=== PATIENT | male | born 1950 | race African-American/Black ===

== ENCOUNTER 2018-10-06 13:58 | Observation (INO) | payer MEDICARE, MEDICAID ==
[2018-10-06 16:26] LABS: Troponin I 0.209 ng/mL (< 0.028)
[2018-10-06] MEDS ORDERED: HumaLOG 300 UNITS/3 ML VIAL SC PRN (16:32)
[2018-10-06] MEDS ORDERED: Senokot S 8.6-50 MG TAB PO PRN (16:32)
[2018-10-06] MEDS ORDERED: Acetaminophen 325 MG TAB PO PRN (16:32)
[2018-10-06] MEDS ORDERED: Ondansetron PF 4 MG/2 ML Vial IVP PRN (16:32)
[2018-10-06] MEDS ORDERED: Dextrose 5% in Water 1,000 ML IV PRN (16:32)
[2018-10-06] MEDS ORDERED: Dextrose 50% Abboject 50 ML SYRINGE SLOW IVP PRN (16:32)
[2018-10-06] MEDS ORDERED: Ondansetron ODT 4 MG TAB PO PRN (16:32)
[2018-10-06 17:10] VITALS: BMI 28.7
--- NOTE | 2018-10-06 17:43 | HP ---
PRIMARY CARE PHYSICIAN: Dr. Parker Candelario. CHIEF COMPLAINT: Acute dizziness and lightheadedness. HISTORY OF PRESENT ILLNESS: The patient is a 68-year-old male with known history of coronary artery disease status post CABG; atrial fibrillation on chronic anticoagulation with Coumadin, cardiomyopathy status post AICD placement, who was transferred from [facility] for further evaluation of acute onset of dizziness/syncope. The patient reportedly developed lightheadedness and dizziness while seated earlier this morning. He reported that he may have passed out while seated as he noticed that his cup of coffee was spilled when he came to. On getting up, he felt dizzy but was still able to check his blood glucose which was above 300, hence he presented to the ER. The patient was evaluated at [facility] with EKG which showed no acute ischemic changes but troponin was noted to be mildly elevated, hence was transferred over here for further evaluation and treatment. He reported having episode of palpitation and chest discomfort last night and earlier this morning for which he took sublingual nitroglycerin about 45 minutes before the episode of syncope. He also reported having loose stools earlier this morning about two or three episodes prior to event. He also reported dysuria since about two weeks, but denied hematuria. He has chronic COPD as well as bronchitis, but denied worsening shortness of breath, fever, nausea, vomiting, or focal weakness. PAST MEDICAL HISTORY: 1. Coronary artery disease status post CABG. 2. Chronic atrial fibrillation. 3. Hypertension. 4. Gouty arthropathy. 5. Hyperlipidemia. 6. Ischemic cardiomyopathy, status post AICD placement. 7. Type 2 diabetes. PAST SURGICAL HISTORY: Significant for the following; 1. Pacemaker placement. 2. CABG. 3. Cholecystectomy. 4. Hernia repair. FAMILY HISTORY: This is significant for diabetes and heart disease in parents and siblings. Both parents are . SOCIAL HISTORY: The patient lives with family. He is a former smoker and stopped about 25 years ago. He denied alcohol and recreational drug use. ALLERGIES: PENICILLIN. HOME MEDICATIONS: The patient is unsure of his medications and does not have a list; however, he reported being on the following; 1. Albuterol inhaler. 2. Amiodarone. 3. Aspirin. 4. Furosemide. 5. Levemir. 6. Pravastatin. 7. Coumadin. 8. Allopurinol. REVIEW OF SYSTEMS: Twelve-point review of systems performed was negative other than pertinent positives and negatives included in the history of present illness. PHYSICAL EXAMINATION: VITAL SIGNS: Orthostatic vitals showed BP of 105/65 on lying down, 106/57 on sitting and 109/60 on standing. GENERAL: Elderly male, in no obvious distress. Afebrile. Anicteric. Acyanotic. HEENT: Normocephalic, atraumatic. Pupils are equal and reacting to light. Oral mucosa is moist. NECK: Supple, nontender with full range of motion. No obvious JVD appreciated. No masses or thyromegaly appreciated. CARDIOVASCULAR: Irregular rhythm and rate with normal heart sounds 1 and 2. RESPIRATORY: Fair air entry bilaterally with some transmitted sounds. No obvious rhonchi or crackles was appreciated. GI: Abdomen is full, soft, nontender, nondistended with normal bowel sounds. EXTREMITIES: Mild bilateral leg edema noted. Otherwise atraumatic with no erythema. Distal pulses are palpable. NEUROLOGIC: Conscious, alert, and oriented x3 with appropriate mental status. Cranial nerves 2 through 12 are intact. The patient moves all extremities. DIAGNOSTIC DATA: CBC showed WBC count of 9.3, hemoglobin of 11.2, MCV of 96.7, and platelet of 170. Coagulation panel showed PT 20.7, INR 1.8. CMP showed sodium 135, potassium 3.5, chloride 95, CO2 of 26, BUN 84, creatinine 2.71, glucose 325, calcium 9.9, total bilirubin 1.1, AST 41, ALT 16, alkaline phosphatase 159, total protein 7.4, albumin 4.1, globulin 3.3. Cardiac markers show initial troponin of 0.156, CK-MB of 1.3, CK of 65. Repeat troponin 3 hours later was 0.209. Initial EKG performed at [facility] showed irregular rhythm and rate, most likely variable demand pacing with rate of 85. No obvious ischemic changes could be discerned. Repeat EKG performed here showed paced rhythm with rate of 73. Chest x-ray showed bilateral interstitial prominence with cardiomegaly as well as sternotomy wires and dual-lead left-sided AICD. No obvious acute pathology was discerned. ASSESSMENT: 1. Presumed syncopal episode. Etiology is unclear. This may well be arrhythmogenic. The patient reported intermittent episodes of palpitations associated with chest tightness. He has been taking nitroglycerin sublingually with some improvement. Orthostatic hypotension is unlikely. Orthostatic vitals performed here were unremarkable. Also, the patient was seated when he had the episode. Interrogation of the AICD, however, showed some irregular atrial pacing as well as burst of atrial fibrillation. 2. Intermittent chest tightness: Most likely related to palpitations and tachyarrhythmia. Initial troponin, however, was mildly elevated, but review of medical records showed that the patient has chronic elevation of troponin dating back to 2014. He however is at increased risk of sudden cardiac as well as coronary artery disease. 3. Type 2 diabetes mellitus with hyperglycemia. 4. Hypertension, controlled. 5. Ischemic cardiomyopathy with EF of 25% to 30% on available echocardiogram. The patient is status post AICD. 6. Chronic systolic and diastolic heart failure. Cannot rule out acute decompensation. Chest x-ray showed some infiltrates and the patient reported having chest congestion. 7. Chronic paroxysmal atrial fibrillation. 8. Chronic anticoagulation with Coumadin. 9. Chronic kidney disease, stage 4. PLAN: 1. We will admit the patient for close monitoring. We will consult Cardiology for re-evaluation of patient's CHF and arrhythmia management. 2. We will continue anticoagulation with Coumadin. 3. We will start insulin therapy and adjust dose to get adequate glycemic control. 4. We will restart home medications once these can be verified. 5. DVT prophylaxis has been addressed. The patient is on chronic anticoagulation with Coumadin. 6. Code status: The patient is do not resuscitate. Daughter is the surrogate decision maker. Job ID: [id number] MTDD
[2018-10-06] MEDS ORDERED: Non-Formulary Item 1 EACH (Insulin Detemir 100 Units/Ml [Levemir] 20 UNITS) SQ SCH (18:00)
[2018-10-06] MEDS ORDERED: Warfarin Sodium 2.5 MG TAB PO SCH (20:30)
[2018-10-06] MEDS ORDERED: Pravastatin Sodium 40 MG TAB PO SCH (21:00)
[2018-10-06] MEDS: Insulin Glargine 20 UNITS in Pre-Filled Syringe SC SCH (21:02)
[2018-10-06 21:18] LABS: Bilirubin Negative (Negative); Blood, Urine Negative (Negative); Clarity CLEAR (Clear); Glucose, Urine (Dipstick) Negative (Negative); Leukocyte Negative (Negative); Nitrite Negative (Negative); Protein, Urine (Dipstick) Negative (Neg-Trace); Urobilinogen 0.2 mg/dL (0.2-1.0); pH, Urine 5.5 (5.0-9.0)
[2018-10-06 21:20] LABS: Bacteria/HPF None Seen HPF (None Seen); Hyaline Casts/LPF 0-3 HYALINE CAST LPF (0-3 Hyaline); Pathc Cast-AUWi Flag 0.13 (0-2.49); RBC/HPF 0-3 HPF (0-3); Squamous Epithelial None Seen HPF (0-3); WBC/HPF None Seen HPF (0-3)
[2018-10-06 21:23] LABS: Urine Culture Reflex No No
[2018-10-07 05:58] LABS: INR-International Normal Ratio 1.5; Prothrombin Time 17.9 SEC (12.0-14.7)
[2018-10-07 06:07] LABS: Albumin 3.8 g/dL (3.4-4.8); Anion Gap 12 mmol/L (10-20); BUN (Urea Nitrogen) 76 mg/dL (8.4-25.7); BUN/Creatinine Ratio 33.19; Calc. Creatinine Clearance 37 mL/min (70-130); Calcium 9.8 mg/dL (7.8-10.44); Carbon Dioxide 30 mmol/L (23-31); Chloride 97 mmol/L (98-107); Estimated GFR-MDRD 35; Glucose 136 mg/dL (80-115); Phosphorus 3.5 mg/dL (2.3-4.7); Potassium 3.1 mmol/L (3.5-5.1); Sodium 136 mmol/L (136-145)
[2018-10-07] MEDS ORDERED: Allopurinol 100 MG TAB PO SCH (09:00)
[2018-10-07] MEDS ORDERED: Aspirin 81 mg Enteric Coated Tablet PO SCH (09:00)
--- NOTE | 2018-10-07 11:37 | ULT ---
EXAM: Carotid ultrasound HISTORY: Syncope COMPARISON: 12/01/2014 TECHNIQUE: Multiplanar grayscale and color Doppler images were obtained in a carotid ultrasound. Spec tral analysis of the Doppler waveforms were performed. FINDINGS: No significant plaque is visualized in either internal carotid artery. No significant plaque is seen in either common carotid artery. The Doppler waveforms are normal in the visualized vessels. Peak systolic velocity in the right internal carotid artery 40 cm/s. Peak systolic velocity in the right common carotid artery 85 cm/s. The right ICA/CCA ratio is 0.5. Peak systolic velocity in the left internal carotid artery 55 cm/s. Peak systolic velocity in the left common carotid artery 96 cm/s. The left ICA/CCA ratio is 0.6. Both vertebral arteries demonstrate antegrade flow without focal stenosis IMPRESSION: No evidence of hemodynamically significant stenosis.
--- NOTE | 2018-10-07 15:19 | CON ---
DATE OF CONSULTATION: REASON FOR CONSULTATION: Dizziness, lightheadedness. HISTORY OF PRESENT ILLNESS: Mr. Dye is a pleasant 68-year-old gentleman, who I have seen and evaluated in the past. He has a history of CAD, status post bypass surgery in addition to severe multivessel disease. The patient was last seen in 2014 after angiography. At that point, medical therapy. He states he has been followed by Dr. Dave Medina in the past, but no longer sees Dr. Medina because of a pending balance. His ICD has also not been followed recently. He has been off anticoagulation therapy due to history of bleeding after cutting himself with a knife. His ICD did suggest atrial fibrillation with rapid ventricular response. No dysrhythmia is present. PAST MEDICAL HISTORY: CAD, status post bypass surgery, chronic atrial fibrillation, hypertension, hyperlipidemia, ICD placement, and diabetes mellitus. HOME MEDICATIONS: 1. Amiodarone. 2. Aspirin. 3. Albuterol. 4. Lasix. 5. Levemir. 6. Pravastatin. 7. Allopurinol. REVIEW OF SYSTEMS: A 10-point review of systems is reviewed and as above, otherwise negative. PHYSICAL EXAMINATION: GENERAL: Patient is a pleasant male, who is in no acute distress. The patient appears their stated age. VITAL SIGNS: Blood pressure 122/60, pulse 76, and temperature 98.4. NEUROLOGIC: The patient is alert and oriented x3 with no focal neurologic deficits. HEENT: Sclerae without icterus. Mouth has moist mucous membranes with normal pallor. NECK: No JVD. Carotid upstroke brisk. No bruits bilaterally. LUNGS: Clear to auscultation with unlabored respirations. BACK: No scoliosis or kyphosis. CARDIAC: Regular rate and rhythm with normal S1 and S2. No S3 or S4 noted. No significant rubs, murmurs, thrills, or gallops noted throughout the precordium. PMI is not displaced. There is no parasternal heave. ABDOMEN: Soft, nontender, nondistended. No peritoneal signs present. No hepatosplenomegaly. No abnormal striae. EXTREMITIES: 2+ femoral and 2+ dorsalis pedis pulses. No cyanosis, clubbing, or edema. SKIN: No gross abnormalities. PERTINENT LABORATORY DATA: INR 1.5. Creatinine 2.29. IMPRESSION: 1. Dizziness, lightheadedness. 2. Atrial fibrillation with rapid ventricular response. 3. Coronary artery disease. 4. Status post bypass surgery. RECOMMENDATIONS: Mr. Dye does not have any symptoms suggesting angina. His troponin is mildly elevated and felt to be chronic. His creatinine is also elevated. At this point, recommend medical therapy. I discussed anticoagulation therapy with Mr. Dye as well as the risks of stroke if not on Coumadin. The family has opted to proceed with Coumadin therapy. I would recommend [facility] Clinic followup as well as EP followup for ICD. Continue amiodarone therapy. Otherwise, I have no further recommendations. Job ID: [id number]
[2018-10-07 15:59] VITALS: BP 113/73; TEMP 98.3
[2018-10-07] MEDS: Insulin Glargine 20 UNITS in Pre-Filled Syringe SC SCH (16:29)
--- NOTE | 2018-10-07 16:47 | DIS ---
DATE OF ADMISSION: 10/06/2018 DATE OF DISCHARGE: 10/07/2018 DISPOSITION: Discharged home. PRIMARY CARE PROVIDER: Parker Candelario DO FINAL DIAGNOSES: Syncope; type 2 diabetes; ischemic cardiomyopathy; coronary artery disease; atrial fibrillation, anticoagulation. DISCHARGE MEDICATIONS: The patient's medicines were never confirmed during his hospital stay. Most recent information is; 1. Albuterol ProAir HFA 2 puffs q.4 hours p.r.n. 2. Allopurinol 200 mg a day. 3. Amiodarone 200 mg a day. 4. Aspirin 81 mg a day. 5. Plavix 75 mg a day. 6. Pepcid 20 mg a day. 7. Lasix 80 mg a day. 8. Detemir insulin 20 units at 6 p.m. 9. Zestril 5 mg a day. 10. Potassium chloride 20 mEq a day. 11. Pravastatin 80 mg a day. 12. Eliquis 5 mg twice a day. 13. Glipizide 10 mg twice a day. 14. Hydralazine 50 mg 3 times a day. 15. Tramadol. ALLERGIES: TO PENICILLIN. DIET: Diabetic. CODE STATUS: DNR. PENDING AT TIME OF DISCHARGE: We have really trying to get family to get medicines. HOSPITAL COURSE: The patient was admitted through the emergency room with acute dizziness and lightheadedness. His blood sugar was elevated. CBC; 9.3 white count, 11.2 g of hemoglobin, 170 platelet count. INR was 1.8. Chemistries; sodium 135 , potassium 3.5, BUN 84, creatinine 2.71. Blood sugar was in the 300 range. Troponins 0.156, 0.209, 0.210. EKG showed paced rhythm at 73. The patient was seen in consultation by Dr. Qasim Zhu. He felt his troponins were chronic. No suggestion of angina. I spoke briefly with Dr. Zhu, who recommended followup with EP with [facility] and possibly electrophysiology. The patient feels fine now. He is being discharged to follow up with Dr. Candelario. Dr Zhu suggested referral to Dr Soto, VLADISLAV, as outpatient. CONSULTATIONS: Dr. Qasim Zhu. PROCEDURES: None. CONDITION AT DISCHARGE: The patient feels well. Cardiorespiratory exam normal. Vital signs normal. Job ID: [id number] [facility]
[2018-10-07] MEDS ORDERED: Warfarin Sodium 2.5 MG TAB PO SCH (17:00)
== END 2018-10-07 18:20 | disposition home or self-care (01) ==
LOC: ERS 13:58 → 2SW 15:45
PROVIDERS: ADMIT Internal Medicine Nephrology; ATTEND Internal Medicine Nephrology
DX: R42 Dizziness and giddiness (principal); R55 Syncope and collapse; I25.10 Atherosclerotic heart disease of native coronary artery without angina pectoris; I13.0 Hypertensive heart and chronic kidney disease with heart failure and stage 1 through stage 4 chronic kidney disease, or unspecified chronic kidney disease; E11.22 Type 2 diabetes mellitus with diabetic chronic kidney disease; E11.65 Type 2 diabetes mellitus with hyperglycemia; N18.4 Chronic kidney disease, stage 4 (severe); I50.42 Chronic combined systolic (congestive) and diastolic (congestive) heart failure; E78.5 Hyperlipidemia, unspecified; I25.5 Ischemic cardiomyopathy; J44.9 Chronic obstructive pulmonary disease, unspecified; I48.0 Paroxysmal atrial fibrillation; I48.2 Chronic atrial fibrillation; M10.9 Gout, unspecified; R07.89 Other chest pain; Z79.82 Long term (current) use of aspirin; Z79.899 Other long term (current) drug therapy; Z87.891 Personal history of nicotine dependence; Z95.0 Presence of cardiac pacemaker; Z95.1 Presence of aortocoronary bypass graft; Z66 Do not resuscitate
CPT/HCPCS: 80069; 81001; 82962 ×2; 84484; 85610; 93005; 93880; 99285; G0378 ×2; 36415; 36416; J1825

== ENCOUNTER 2018-11-18 21:03 | Observation (INO) | payer MEDICARE, MEDICAID ==
[2018-11-18 22:15] LABS: Troponin I 0.144 ng/mL (< 0.028)
[2018-11-18] MEDS ORDERED: Furosemide 40 MG/4 ML VIAL ONE (22:37)
[2018-11-19 00:12] VITALS: BMI 28.9
[2018-11-19 04:17] LABS: Troponin I 0.145 ng/mL (< 0.028)
[2018-11-19] MEDS ORDERED: PROVENTIL INHALER 6.7 G (200 INHALATIONS) INH PRN (07:25)
[2018-11-19] MEDS ORDERED: Dextrose 5% in Water 1,000 ML IV PRN (07:25)
[2018-11-19] MEDS ORDERED: Acetaminophen 325 MG TAB PO PRN (07:25)
[2018-11-19] MEDS ORDERED: Albuterol Sulfate 2.5 mg/3 ml Neb NEB PRN (07:25)
[2018-11-19] MEDS ORDERED: Ondansetron ODT 4 MG TAB PO PRN (07:25)
[2018-11-19] MEDS ORDERED: HumaLOG 300 UNITS/3 ML VIAL SC PRN (07:25)
[2018-11-19] MEDS ORDERED: Dextrose 50% Abboject 50 ML SYRINGE SLOW IVP PRN (07:25)
[2018-11-19] MEDS ORDERED: Metolazone 2.5 MG TAB PO SCH (07:30)
--- NOTE | 2018-11-19 08:01 | HP ---
PRIMARY CARE PROVIDER: Parker Candelario DO RADIOLOGIC TECHNOLOGIST MAMMOGRAM: Qasim Zhu MD HISTORY OF PRESENT ILLNESS: The patient was referred to [facility] by [place] [facility] after transfer from [place]. The patient was in [place], had 15 minutes of chest tightness. He was out of his nitroglycerin, actually states that been washed with his clothes. His studio receptionist here was called, Dr. Zhu. He and Dr. Candelario recommended going to the emergency room. He went to the emergency room in [place], found to have abnormal enzymes, transferred to [place] [facility] and admitted to the [facility]. He had no sweats, but a hot feeling with the pain. The chest tightness pain has been resolved since before he left [place]. He had no distinct change in shortness of breath. No nausea, vomiting, etc,. PAST MEDICAL HISTORY: Pertinent for coronary artery disease, post coronary artery bypass graft, history of atrial fibrillation, hypertension, gout, dyslipidemia, ischemic cardiomyopathy, post AICD placement, diabetes mellitus type 2. SURGICAL HISTORY: Includes pacemaker, AICD, coronary artery bypass graft, cholecystectomy, hernia repair. ALLERGIES: HE IS ALLERGIC TO PENICILLIN. SOCIAL HISTORY: Lives with family. Former smoker, stopped about 25 years ago. No alcohol. Code status is do not resuscitate. Daughter is surrogate decision maker. FAMILY HISTORY: Significant for diabetes, heart disease in parents and siblings. Both parents . CURRENT MEDICATIONS: 1. Allopurinol 600 mg twice a day. 2. Vitamin B12. 3. Albuterol nebulizer 2.5 mg q.6. 4. Levemir 22 units subcu at bedtime. 5. Aspirin 81 mg a day. 6. Losartan 25 mg a day. 7. Eliquis 10 mg a day. 8. Amiodarone 200 mg a day. 9. Zoloft 50 mg a day. 10. Zaroxolyn 2.5 mg p.r.n. 11. Namenda 5 mg a day. 12. Coreg 6.25 mg twice a day. 13. Lipitor 20 mg a day. 14. Glipizide 5 mg a day. 15. Albuterol ProAir HFA rescue inhaler. 16. K-Dur 20 mEq a day. 17. Lasix 80 mg a day. 18. Pepcid 20 mg a day. REVIEW OF SYSTEMS: GENERAL: He had a little dizziness with present illness. No fainting, a little headache. EYES: He has chronic blurred vision. No double vision, flashing lights. EAR, NOSE, AND THROAT: No ear pain or drainage. No nasal bleeding. No trouble swallowing. CARDIAC: See present illness. He has no orthopnea, paroxysmal nocturnal dyspnea. RESPIRATIONS: He has a little shortness of breath. Uses nebulizer on a regular basis. Has a dry cough. No recent wheezing. GASTROINTESTINAL: No nausea, vomiting, diarrhea, constipation. GENITOURINARY: He has nocturia. Stream is slow. MUSCULOSKELETAL: Occasional swelling in his legs. No pain in his legs. NEUROLOGICAL: No strokes, seizures, or focal weakness. PSYCHIATRIC: No anxiety or depression. SKIN: No bruising bleeding or rash. HEME/LYMPH: No tender or swollen lymph nodes in axilla, inguinal, cervical area. PHYSICAL EXAMINATION: GENERAL: Alert, cooperative, pleasant gentleman. VITAL SIGNS: Temperature 98.0 to 98.7, pulse 67 to 77, respirations 20, room air sat normal. Blood pressure in the 118/59 range. HEENT: Examination of his head, eyes, ears, nose, throat reveal bilateral cataracts. Pupils equal, round, and reactive to light. Extraocular movements are intact. Sclerae are white. Tympanic membranes clear. Nose is clear. He has multiple missing teeth. Mucous membranes are wet. NECK: Supple without jugular venous distention, adenopathy, or thyromegaly. CHEST: Clear to auscultation and percussion. HEART: Regular rate and rhythm. First and second second heart sounds are clear. There are no appreciated murmurs or gallops. ABDOMEN: Soft. Bowel sounds are normal. There is no hepatosplenomegaly, masses, rebound, or bruits. Bowel sounds are present. EXTREMITIES: No cyanosis, clubbing, or edema. PULSES: Carotid, radial, femoral, and dorsalis pedis pulses palpable and symmetric. SKIN: Warm and dry without bruises or rash. HEME/LYMPH: No tender or swollen lymph nodes in axilla, inguinal, cervical area. NEUROLOGICAL: Cranial nerves 2 through 12 are intact. Deep tendon reflexes symmetric. IMAGING STUDIES: Chest x-ray, cardiomegaly with no CHF or infiltrate reviewed by me. CARDIOVASCULAR STUDIES: EKG; sinus rhythm, prolonged CT interval. Nonspecific ST abnormality diffusely. Reviewed by me. LABORATORY RESULTS: CBC; hemoglobin 10.5, platelet count 161,000, white count 12.7. Cardiac enzymes; 0.124, 0.144, 0.140, 0.145. BNP 530. Comp metabolic profile; potassium 3.2, BUN 49, creatinine 2.45. ADMITTING DIAGNOSES: 1. Angina pectoris. 2. Coronary artery disease. 3. Cardiomyopathy. 4. Hypertension. 5. Diabetes mellitus type 2 with chronic kidney disease stage 3. 6. Chronic obstructive pulmonary disease. PLAN: Serial enzymes have been done. The patient's symptoms are consistent with chronic stable angina. His cardiac enzymes do not show any increasing patterns suspicious for acute NE. Dr. Zhu, his studio receptionist, will be called. I suspect the man can be discharged shortly on combination of Imdur and a prescription for nitroglycerin. Job ID: [id number]
[2018-11-19] MEDS ORDERED: Non-Formulary Item 1 EACH (Famotidine 20 MG) PO SCH (09:00)
[2018-11-19] MEDS ORDERED: Non-Formulary Item 1 EACH (Sertraline Hcl [Sertraline Hcl] 50 MG) PO SCH (09:00)
[2018-11-19] MEDS ORDERED: Non-Formulary Item 1 EACH (Cetirizine Hcl [Zyrtec] 10 MG) PO SCH (09:00)
[2018-11-19] MEDS ORDERED: Non-Formulary Item 1 EACH (Cyanocobalamin (Vitamin B-12) [Vitamin B-12] 500 MCG) PO SCH (09:00)
[2018-11-19] MEDS: Amiodarone 200 MG TAB PO SCH (09:16)
[2018-11-19] MEDS: Potassium Chloride 20 MEQ TAB PO SCH (09:17)
[2018-11-19] MEDS: Loratadine 10 MG TAB PO SCH (09:17)
[2018-11-19] MEDS: Losartan 25 MG TAB PO SCH (09:17)
[2018-11-19] MEDS: Aspirin Chewable 81 MG TAB PO SCH (09:17)
[2018-11-19] MEDS: glipiZIDE 5 MG TAB PO SCH (09:18)
[2018-11-19] MEDS: Furosemide 80 MG TAB PO SCH (09:18)
[2018-11-19] MEDS: Carvedilol 6.25 MG TAB PO SCH ×2 (09:18→22:02)
[2018-11-19] MEDS: Cyanocobalamin (Vitamin B-12) 1,000 MCG TAB PO SCH (09:19)
[2018-11-19] MEDS: Famotidine 20 MG TAB PO SCH (09:23)
[2018-11-19] MEDS: Apixaban 5 MG TAB PO SCH (09:26)
[2018-11-19] MEDS: Allopurinol 300 MG TAB PO SCH ×2 (09:29→22:02)
[2018-11-19 15:31] LABS: Hemoglobin 10.8 g/dL (14.0-18.0); Platelet Count 163 thou/uL (130-400)
[2018-11-19] MEDS ORDERED: Insulin Glargine 22 UNITS in Pre-Filled Syringe 1 EACH SC SCH (21:00)
[2018-11-19] MEDS ORDERED: INSULIN DETEMIR 22 UNIT SQ SCH (21:00)
[2018-11-19] MEDS ORDERED: Atorvastatin Calcium 20 MG TAB PO SCH (21:00)
--- NOTE | 2018-11-19 23:49 | CON ---
DATE OF CONSULTATION: HISTORY OF PRESENT ILLNESS: Nicolas Dye is a 68-year-old black male who is followed by Dr. Zhu. In 2014, he underwent cardiac catheterization, was found to have proximal LAD disease as well as an 80% lesion in the right ventricular branch. He had a febrile illness at that time and it was recommended that he undergo bypass surgery. However, he declined that and then intervention was offered, however, with febrile illness that was deferred at that time. He then underwent CABG x3 at [facility]. He also has had a dual-chamber ICD placed, which apparently is a [employer] device placed at [facility]. He does have a history of paroxysmal atrial fibrillation. He was admitted here in October 2018 and he was found on his ICD to have episodes of atrial fibrillation with rapid ventricular response. He was started on Eliquis. He did undergo Lexiscan Cardiolite testing in the office on 11/16/2018. This revealed an ejection fraction of 25% and the Cardiolite was probably normal without evidence of ischemia or scar present. He was apparently in [place] yesterday and had 15 minutes chest tightness. He was out of nitroglycerin. He went to the emergency room ultimately in [place] and found to have elevated troponin Is which arre chronically elevated. He was then transferred here for further evaluation. He denies any nausea, vomiting, diaphoresis, or shortness of breath with the episode. He also denies any palpitations. PAST MEDICAL HISTORY: Coronary artery disease, paroxysmal atrial fibrillation, hypertension, hyperlipidemia, diabetes mellitus, ICD placement. PAST SURGICAL HISTORY: CABG x3 according to the patient. ICD placement, [employer]. Cholecystectomy and hernia repair. MEDICATIONS: 1. Albuterol nebs q.6 hours p.r.n. 2. Allopurinol 600 mg b.i.d. 3. Amiodarone 200 mg daily. 4. Apixaban 5 mg b.i.d. 5. Aspirin 81 mg daily. 6. Atorvastatin 20 daily. 7. Carvedilol 6.25 b.i.d. 8. Zyrtec 10 mg daily. 9. Famotidine 20 mg daily. 10. Furosemide 80 daily. 11. Glipizide 5 mg daily. 12. Levemir 22 units at bedtime. 13. Losartan 25 daily. 14. Namenda 5 mg daily. 15. Zaroxolyn 2.5 mg p.r.n. 16. KCl 20 mEq daily. 17. Sertraline 50 daily. ALLERGIES: PENICILLIN. SOCIAL HISTORY: He stopped smoking 25 years ago. He does not drink. FAMILY HISTORY: Heart disease in parents and siblings. REVIEW OF SYSTEMS: A 10-point review of systems is otherwise unremarkable. PHYSICAL EXAMINATION: VITAL SIGNS: Blood pressure 107/58, pulse 72, sinus rhythm on the monitor. HEENT: PERRL. NECK: Supple. CHEST: Clear. CARDIAC: S1 and S2 normal without any S3, S4, or murmurs. ABDOMEN: Normal bowel sounds without tenderness or organomegaly. EXTREMITIES: Revealed no clubbing, cyanosis, or edema. NEUROLOGICAL: Grossly intact. SKIN: Warm and dry. LABORATORY DATA: EKG revealed normal sinus rhythm with low voltage QRS. Nonspecific T-wave changes. Hemoglobin 10.5, hematocrit 34.1, white count 12, 700, platelets 161,000. Troponin I 0.145. BNP 530.7. Sodium 138, potassium 3.2, chloride 98, carbon dioxide 24, BUN 49, creatinine 2.45. LDL on 11/11/2018, was 66. IMPRESSION: 1. 15 minutes of chest discomfort. This certainly could be angina or could be related to an episode of paroxysmal atrial fibrillation. 2. Status post CABG x3. 3. Status post dual-chamber ICD placement, which apparently is a [employer] device. 4. Paroxysmal atrial fibrillation, on amiodarone. 5. Hypertension. 6. Hypercholesterolemia. 7. Diabetes. 8. Former smoker. PLAN: Mr. Dye has chronically elevated troponin Is probably secondary to his chronic kidney disease. His ICD needs to be interrogated to see if he possibly had an episode of atrial fibrillation at the time that he had this event. Otherwise , it would seem reasonable to start him on low-dose long-acting nitrates and give him a prescription for sublingual nitroglycerin. Job ID: [id number] [facility]
[2018-11-20] MEDS: Aspirin Chewable 81 MG TAB PO SCH (08:47)
[2018-11-20] MEDS: Allopurinol 300 MG TAB PO SCH (08:47)
[2018-11-20] MEDS: Amiodarone 200 MG TAB PO SCH (08:47)
[2018-11-20] MEDS: Apixaban 5 MG TAB PO SCH (08:47)
[2018-11-20] MEDS: Carvedilol 6.25 MG TAB PO SCH (08:47)
[2018-11-20] MEDS: Cyanocobalamin (Vitamin B-12) 1,000 MCG TAB PO SCH (08:48)
[2018-11-20] MEDS: Famotidine 20 MG TAB PO SCH (08:49)
[2018-11-20] MEDS: Potassium Chloride 20 MEQ TAB PO SCH (08:49)
[2018-11-20] MEDS: glipiZIDE 5 MG TAB PO SCH (08:49)
[2018-11-20] MEDS: Loratadine 10 MG TAB PO SCH (08:49)
[2018-11-20] MEDS: Furosemide 80 MG TAB PO SCH (08:49)
[2018-11-20] MEDS: Losartan 25 MG TAB PO SCH (08:49)
[2018-11-20 16:31] VITALS: BP 122/60; TEMP 97.9
[2018-11-20] MEDS ORDERED: Nitroglycerin 0.4 MG TAB 1 EACH PO PRN (17:35)
--- NOTE | 2018-11-20 19:56 | DIS ---
DATE OF ADMISSION: 11/18/2018 DATE OF DISCHARGE: 11/20/2018 DISCHARGE DISPOSITION: Home. FOLLOWUP: Follow up with primary care physician, Dr. Parker Candelario in 1 week. Follow up with Dr. Zhu as outpatient in 1 to 2 weeks. The patient was seen and examined on the day of discharge. Denies any new complaints. No chest pain, shortness of breath, palpitations reported. DISCHARGE MEDICATIONS: Same as admission medications. No changes were made. BRIEF HOSPITAL COURSE: The patient is a 68-year-old male with coronary artery disease paroxysmal atrial fibrillation, hypertension, hyperlipidemia, and AICD placement, presented to the emergency room with chest discomfort. Please refer to the history and physical for further details. The patient was admitted to the hospital with a diagnosis of chest discomfort rule out acute coronary syndrome. His serial troponins were in the indeterminate range with maximum troponin of 0.145. Please note that patient has chronic kidney disease, stage 3. He was monitored on the telemetry unit. The patient was evaluated by Cardiology, Dr. Zhu. Dr. Zhu recommended to continue current medications. His symptoms are consistent with chronic stable angina. He was found to have hypokalemia, which was replaced. Repeat basic metabolic profile after 1 week is recommended. Primary care physician advised to follow. He has been cleared by Dr. Zhu for discharge. FINAL DIAGNOSES: 1. Chest discomfort, probably secondary to chronic stable angina. 2. Coronary artery disease, status post coronary artery bypass grafting. 3. Hypertension. 4. Diabetes mellitus type 2. 5. Chronic kidney disease, stage 3. 6. Paroxysmal atrial fibrillation, on anticoagulation. 7. Hyperlipidemia. 8. Hypertension. 9. Gout. 10. Chronic anemia. 11. Penicillin allergy. 12. Chronic systolic heart failure. Ejection fraction 25%. Status post automatic implantable cardioverter-defibrillator. 13. Diabetes mellitus type 2. 14. Seasonal allergies. 15. Depression, mild, stable. 16. Former smoker. PLAN: Plan was discussed with the patient in detail. He stated understanding. Job ID: [id number]
--- NOTE | 2018-11-20 19:57 | PRG ---
DATE OF SERVICE: 11/20/2018 SUBJECTIVE: Mr. Dye is doing well. No current complaints. He states he feels very well. He did have an episode of chest pain yesterday lasting 15 minutes. Troponin was mildly elevated, but is chronically elevated due to renal insufficiency. Mr. Dye has had a recent stress study performed last month. It was negative for ischemia. LVEF 25%. OBJECTIVE: VITAL SIGNS: Blood pressure 103/58, pulse 68, temperature 97.9. GENERAL: Patient is a pleasant male, who is in no acute distress. The patient appears their stated age. NEUROLOGIC: The patient is alert and oriented x3 with no focal neurologic deficits. HEENT: Sclerae without icterus. Mouth has moist mucous membranes with normal pallor. NECK: No JVD. Carotid upstroke brisk. No bruits bilaterally. LUNGS: Clear to auscultation with unlabored respirations. BACK: No scoliosis or kyphosis. CARDIAC: Regular rate and rhythm with normal S1 and S2. No S3 or S4 noted. No significant rubs, murmurs, thrills, or gallops noted throughout the precordium. PMI is not displaced. There is no parasternal heave. ABDOMEN: Soft, nontender, nondistended. No peritoneal signs present. No hepatosplenomegaly. No abnormal striae. EXTREMITIES: 2+ femoral and 2+ dorsalis pedis pulses. No cyanosis, clubbing, or edema. SKIN: No gross abnormalities. PERTINENT LABORATORY DATA: Hemoglobin 10.3. IMPRESSION: 1. Chest pain. 2. Coronary artery disease. 3. Chronic kidney disease. RECOMMENDATIONS: At this point, I recommend a conservative therapy. I recommend beta-helga therapy, statin, aspirin in addition to nitrates. The patient has a history of CAD, status post bypass surgery in addition to ischemic cardiomyopathy. He may have small vessel disease, but his recent cardiac PET study was negative for ischemia. Given his marked depression in GFR, I would feel the risks are higher than benefits of proceeding with any further intervention. Plan is to follow up with Mr. Dye as an outpatient. Job ID: [id number]
[2018-11-20] MEDS ORDERED: Apixaban 5 MG TAB PO SCH (21:00)
--- NOTE | 2018-11-23 13:59 | EKG ---
Test Reason : CHEST PAIN Blood Pressure : / mmHG Vent. Rate : 063 BPM Atrial Rate : 063 BPM P-R Int : 238 ms QRS Dur : 112 ms QT Int : 422 ms P-R-T Axes : 070 013 202 degrees QTc Int : 431 ms Sinus rhythm with 1st degree A-V block with occasional Premature ventricular complexes Low voltage QRS Nonspecific T wave abnormality Abnormal ECG Confirmed by TAMELA ALMEIDA M.D. ([id number]), editor managing director LUAN PENALOZA ([id number]) on 11/23/2018 1:59:00 PM Referred By: Confirmed By:TAMELA ALMEIDA M.D.
== END 2018-11-20 19:20 | disposition home or self-care (01) ==
LOC: ERS 21:03 → 2NO 23:57
PROVIDERS: ADMIT Family Medicine; ATTEND Family Medicine
DX: R07.89 Other chest pain (principal); I25.10 Atherosclerotic heart disease of native coronary artery without angina pectoris; I13.0 Hypertensive heart and chronic kidney disease with heart failure and stage 1 through stage 4 chronic kidney disease, or unspecified chronic kidney disease; E11.22 Type 2 diabetes mellitus with diabetic chronic kidney disease; N18.3 Chronic kidney disease, stage 3 (moderate); I50.22 Chronic systolic (congestive) heart failure; D63.1 Anemia in chronic kidney disease; I48.0 Paroxysmal atrial fibrillation; E78.5 Hyperlipidemia, unspecified; M10.9 Gout, unspecified; F32.9 Major depressive disorder, single episode, unspecified; I25.5 Ischemic cardiomyopathy; J44.9 Chronic obstructive pulmonary disease, unspecified; K21.9 Gastro-esophageal reflux disease without esophagitis; I44.0 Atrioventricular block, first degree; E78.00 Pure hypercholesterolemia, unspecified; Z95.1 Presence of aortocoronary bypass graft; Z87.891 Personal history of nicotine dependence; Z66 Do not resuscitate; Z88.0 Allergy status to penicillin; Z79.4 Long term (current) use of insulin; Z79.01 Long term (current) use of anticoagulants; Z79.82 Long term (current) use of aspirin; Z79.899 Other long term (current) drug therapy
CPT/HCPCS: 82565; 82962 ×2; 83880; 84484 ×3; 85014; 85018; 85049; 93005; 94640; 96374; 99285; G0378 ×2; 36415; 36416; J1815; J1940; J7611

== ENCOUNTER 2019-02-25 22:08 | Observation (INO) | payer MEDICARE, MEDICAID ==
[2019-02-25 23:29] LABS: Troponin I 0.207 ng/mL (< 0.028)
[2019-02-26 02:28] LABS: Troponin I 0.179 ng/mL (< 0.028)
[2019-02-26] MEDS ORDERED: Acetaminophen 325 MG TAB PO PRN ×2 (03:29→22:45)
[2019-02-26] MEDS ORDERED: HYDROcodone/Acetaminophen 5/325 mg Tablet PO PRN ×2 (03:29)
[2019-02-26] MEDS ORDERED: Ondansetron ODT 4 MG TAB SL PRN (03:29)
[2019-02-26] MEDS ORDERED: Ondansetron PF 4 MG/2 ML Vial IVP PRN (03:29)
[2019-02-26 03:33] VITALS: BMI 34.0
[2019-02-26] MEDS ORDERED: HumaLOG 300 UNITS/3 ML VIAL SC PRN (04:32)
[2019-02-26] MEDS ORDERED: Dextrose 50% Abboject 50 ML SYRINGE SLOW IVP PRN (04:32)
[2019-02-26] MEDS ORDERED: Dextrose 5% in Water 1,000 ML IV PRN (04:32)
[2019-02-26] MEDS ORDERED: Albuterol Sulfate 2.5 mg/3 ml Neb NEB PRN (04:33)
[2019-02-26] MEDS ORDERED: PROVENTIL INHALER 6.7 G (200 INHALATIONS) INH PRN (04:33)
--- NOTE | 2019-02-26 05:48 | HP ---
PRIMARY CARE PHYSICIAN: Parker Candelario DO CHIEF COMPLAINT: Shortness of breath. HISTORY OF PRESENT ILLNESS: Mr. Dye is a 68-year-old gentleman with a known history of diabetes mellitus, coronary artery disease, CHF, hypertension, and hyperlipidemia. The patient states he has developed increasing shortness of breath and increasing abdominal girth as well as bilateral lower extremity edema, which he attributes to running out of his medication and therefore being off Lasix for 1 week. He normally takes 80 mg daily. The patient states he has felt much better since given a dose of Lasix in the emergency department. He reports having recent issues with dysuria and urinary hesitancy. Denies noting any hematuria. States he has had issues with UTIs in the past and is unsure if he has been placed on antibiotics for UTI as of recently. He seems to think that he has been taking one. Denies having any fevers, but does report occasional chills. Denies any sweats. No headaches or dizziness. No chest pain or palpitations. The patient states he lives at home and manages well on his own. He previously used a cane for mobility, but states he has been doing better since he stopped using it as much and has regained some of his strength and walking. The patient was initially seen at [facility]. He had an EKG done showing infrequent PVCs with a first-degree AV block and flattened T-waves with a prolonged QTc per ED note. LABORATORY DATA: Laboratory studies were done showing a white count of 11.8, hemoglobin of 11.2, hematocrit 37.5, platelets 188. Sodium 140, potassium 3.7, BUN 50, creatinine 2.09, GFR 39, glucose 85, calcium 9.2. LFTs unremarkable. Alkaline phosphatase 139. Initial troponin indeterminate at 0.223, repeat was 0.207 and then 0.179. BNP elevated at 715.7. He did have a chest x-ray done, which demonstrated cardiomegaly with mild vascular engorgement. There was no infiltrate or effusion seen. He underwent a urinalysis showing trace blood, otherwise unremarkable. REVIEW OF SYSTEMS: Apart from those mentioned above in HPI, all other review of systems are negative. PAST MEDICAL HISTORY: 1. Hypertension. 2. CHF. 3. Atrial fibrillation. 4. Coronary artery disease. 5. Type 2 diabetes, insulin dependent. 6. GERD. 7. Hyperlipidemia. 8. Hypertension. 9. Asthma. 10. CKD. 11. Gout. 12. Depression. PAST SURGICAL HISTORY: 1. Cardiac stents. 2. CABG x3. 3. Cholecystectomy. 4. Hernia repair. 5. Pacemaker placement. 6. Abdominal surgery. SOCIAL HISTORY: The patient lives alone. He is fully independent. Denies any alcohol use, tobacco use, or illicit drug use. ALLERGIES: PENICILLIN. CURRENT MEDICATIONS: 1. Lasix. 2. Potassium chloride. 3. Famotidine. 4. Glipizide. 5. ProAir HFA. 6. Allopurinol. 7. Atorvastatin. 8. Namenda. 9. Carvedilol. 10. Zoloft. 11. Metolazone. 12. Eliquis. 13. Losartan. 14. Amiodarone. 15. Levemir. PHYSICAL EXAMINATION: GENERAL: The patient appears well developed, well nourished, resting comfortably and is in no acute distress. VITAL SIGNS: Temperature 97.8, pulse 78, respirations 14, O2 saturation 98% on room air, blood pressure 132/70. HEENT: Normocephalic and atraumatic. Pupils are equal, round, and reactive to light. Sclerae without icterus. Oropharynx is clear. NECK: Supple. LUNGS: Without any audible crackles or wheezing. The patient with reduced breath sounds at the bilateral bases associated with poor inspiratory effort. Breathing does not appear labored and he does not appear tachypneic. CARDIAC: Regular rate and rhythm. No audible murmurs, rubs, or gallops. ABDOMEN: Distended, soft, nontender to palpation. No guarding or rigidity. No renal angle tenderness. EXTREMITIES: +3 pitting edema bilaterally. NEUROLOGIC: Alert and oriented x3. No deficits on exam. SKIN: Warm and dry. INVESTIGATIONS: As mentioned above in HPI. IMPRESSION AND PLAN: Mr. Dye is a very pleasant 68-year-old gentleman, who presents for management of the following. 1. Congestive heart failure exacerbation. The patient has ran out of his medications for the last week. We will place a consultation to Case Management for medication assistance. The patient is requesting assistance with medications due to financial strains. He has been given Lasix 80 mg IV in the ED with clinical improvement. We will resume Lasix [address] consultation for inpatient and outpatient cardiac rehab. 2. Acute kidney injury/chronic kidney disease. The patient with acute on chronic kidney injury. GFR currently 29 compared to 44 last month and creatinine 2.09 compared to 1.86 last month. Given underlying congestive heart failure, we will hold on IV fluids. The patient able to take in some fluids by mouth, but is on fluid restriction. 3. Dysuria. The patient without any evidence of urinary tract infection. We will continue to monitor. We will obtain postvoid bladder scan to ensure the patient is not retaining urine. 4. Hypertension. Monitor blood pressure. Resume home medications once verified. 5. Diabetes mellitus. We will resume home medications including insulin once verified. We will otherwise initiate insulin sliding scale. Monitor blood glucose. 6. Hyperlipidemia. Resume home medications once verified. 7. Gastrointestinal prophylaxis. Famotidine 20 mg IV b.i.d. 8. Code status. DNAR. The patient's surrogate decision maker is his daughter, Jayy Dye. 9. Noncompliance. We will place consultation to Case Management for medication assistance. The patient's case to be discussed with attending for further recommendations. Job ID: [id number]
[2019-02-26] MEDS ORDERED: Prevnar 13-Val Conj/PF 0.5 ML SYRINGE IM ONE (09:00)
[2019-02-26] MEDS ORDERED: FLU VACC TS2019-20(65YR UP)/PF 180 MCG/0.5 ML SYRINGE IM ONE (09:00)
[2019-02-26] MEDS: Amiodarone 200 MG TAB PO SCH (09:22)
[2019-02-26] MEDS: Furosemide 80 MG TAB PO SCH (09:22)
[2019-02-26] MEDS: Losartan 25 MG TAB PO SCH (09:22)
[2019-02-26] MEDS: Aspirin Chewable 81 MG TAB PO SCH (09:22)
[2019-02-26] MEDS: Carvedilol 6.25 MG TAB PO SCH ×2 (09:22→20:35)
[2019-02-26] MEDS: Allopurinol 300 MG TAB PO SCH ×2 (09:22→20:36)
[2019-02-26] MEDS: Apixaban 5 MG TAB PO SCH ×2 (09:22→20:35)
[2019-02-26] MEDS: Metolazone 2.5 MG TAB PO SCH (09:23)
[2019-02-26 10:42] LABS: #Basophils 0.1 thou/uL (0.0-0.2); #Eosinphils 0.9 thou/uL (0.0-0.7); #Lymphocytes 1.5 thou/uL (1.20-3.40); #Neutrophils 8.2 thou/uL (1.40-6.50); %Basophils 0.5 % (0.0-1.0); %Eosinophils 7.5 % (0.0-10.0); %Lymphocytes 12.6 % (21.0-51.0); %Monocytes 8.3 % (0.0-10.0); %Neutrophils 71.1 % (42.0-75.0); Hemoglobin 11.3 g/dL (14.0-18.0); Mean Corpuscular Hemoglobin 31.9 pg (27.0-31.0); Mean Corpuscular Volume 99.9 fL (78.0-98.0); Mean Platelet Volume 10.4 fL (7.4-10.4); Platelet Count 179 thou/uL (130-400); RBC Distribution Width 14.1 % (11.5-14.5); Red Blood Cell (RBC) Count 3.54 mill/uL (4.70-6.10); White Blood Cell (WBC) Count 11.5 thou/uL (4.8-10.8)
[2019-02-26 10:59] LABS: Anion Gap 14 mmol/L (10-20); BUN (Urea Nitrogen) 48 mg/dL (8.4-25.7); Calc. Creatinine Clearance 48 mL/min (70-130); Calcium 9.1 mg/dL (7.8-10.44); Carbon Dioxide 19 mmol/L (23-31); Chloride 109 mmol/L (98-107); Estimated GFR-MDRD 40; Glucose 183 mg/dL (80-115); Potassium 3.2 mmol/L (3.5-5.1); Sodium 139 mmol/L (136-145)
[2019-02-26 11:04] LABS: Troponin I 0.215 ng/mL (< 0.028)
[2019-02-26] MEDS: HumaLOG 300 UNITS/3 ML VIAL SC PRN (12:41)
--- NOTE | 2019-02-26 16:53 | CON ---
DATE OF CONSULTATION: REASON FOR CONSULTATION: Acute on chronic systolic heart failure. HISTORY OF PRESENT ILLNESS: Mr. Dye is a 68-year-old gentleman who was seen and evaluated in the past. He was last seen on 10/07/2018 and 11/19/2018. He has a previous history of CAD, status post bypass surgery, was previously followed by Dr. Sahil Junior. He recently states he "ran out of medications." He states he began having shortness of breath, lower extremity edema, and PND. PAST MEDICAL HISTORY: CAD, status bypass surgery; chronic atrial fibrillation; hypertension; hyperlipidemia; status post ICD; and diabetes mellitus. REVIEW OF SYMPTOMS: Ten-point review of systems was reviewed as above, otherwise negative. PHYSICAL EXAMINATION: GENERAL: Patient is a pleasant 68-year-old gentleman who is in no acute distress. The patient appears their stated age. VITAL SIGNS: Blood pressure 112/60, pulse 74, temperature 98.1. NEUROLOGIC: The patient is alert and oriented x3 with no focal neurologic deficits. HEENT: Sclerae without icterus. Mouth has moist mucous membranes with normal pallor. NECK: No JVD. Carotid upstroke brisk. No bruits bilaterally. LUNGS: Crackles noted bilaterally. BACK: No scoliosis or kyphosis. CARDIAC: Regular rate and rhythm with normal S1 and S2. No S3 or S4 noted. No significant rubs, murmurs, thrills, or gallops noted throughout the precordium. PMI is not displaced. There is no parasternal heave. ABDOMEN: Soft, nontender, nondistended. No peritoneal signs present. No hepatosplenomegaly. No abnormal striae. EXTREMITIES: 2+ pitting edema. 2+ femoral and 2+ dorsalis pedis pulses. No cyanosis, clubbing. SKIN: No gross abnormalities. PERTINENT LABORATORY DATA: Hemoglobin 11.3, hematocrit 35.2. Creatinine 2.02. Peak troponin 0.2. Potassium 3.2. IMPRESSION: Acute on chronic systolic heart failure. RECOMMENDATIONS: Mr. Dye states he ran out of medications. He had dietary and sodium indiscretion. At this point, I will make sure and place him on medications that are felt to be affordable. We will consider changing Eliquis to Coumadin. Continue aspirin, atorvastatin, and carvedilol. Amiodarone is also felt to be cost effective. Change p.o. Lasix to IV Lasix x1 dose. Job ID: [id number]
[2019-02-26] MEDS ORDERED: INSULIN DETEMIR 22 UNIT SQ SCH (21:00)
[2019-02-26] MEDS ORDERED: Atorvastatin Calcium 20 MG TAB PO SCH (21:00)
[2019-02-26] MEDS ORDERED: Insulin Glargine 22 UNITS in Pre-Filled Syringe 1 EACH SC SCH (21:00)
[2019-02-27 05:41] LABS: #Basophils 0.1 thou/uL (0.0-0.2); #Eosinphils 0.9 thou/uL (0.0-0.7); #Lymphocytes 1.6 thou/uL (1.20-3.40); #Monocytes 1.3 thou/uL (0.11-0.59); #Neutrophils 7.8 thou/uL (1.40-6.50); %Basophils 0.5 % (0.0-1.0); %Lymphocytes 13.9 % (21.0-51.0); %Monocytes 10.8 % (0.0-10.0); %Neutrophils 66.8 % (42.0-75.0); Hemoglobin 10.8 g/dL (14.0-18.0); Mean Corpuscular HGB CONC 32.1 g/dL (32.0-36.0); Mean Corpuscular Hemoglobin 31.8 pg (27.0-31.0); Mean Corpuscular Volume 99.1 fL (78.0-98.0); Mean Platelet Volume 10.5 fL (7.4-10.4); Platelet Count 179 thou/uL (130-400); RBC Distribution Width 14.4 % (11.5-14.5); Red Blood Cell (RBC) Count 3.39 mill/uL (4.70-6.10); White Blood Cell (WBC) Count 11.7 thou/uL (4.8-10.8)
[2019-02-27 05:59] LABS: Anion Gap 13 mmol/L (10-20); BUN (Urea Nitrogen) 48 mg/dL (8.4-25.7); Calc. Creatinine Clearance 49 mL/min (70-130); Calcium 9.2 mg/dL (7.8-10.44); Carbon Dioxide 22 mmol/L (23-31); Chloride 109 mmol/L (98-107); Estimated GFR-MDRD 40; Glucose 125 mg/dL (80-115); Potassium 3.2 mmol/L (3.5-5.1); Sodium 141 mmol/L (136-145)
[2019-02-27] MEDS: Carvedilol 6.25 MG TAB PO SCH (08:11)
[2019-02-27] MEDS: Furosemide 80 MG TAB PO SCH (08:11)
[2019-02-27] MEDS: Losartan 25 MG TAB PO SCH (08:11)
[2019-02-27] MEDS: Apixaban 5 MG TAB PO SCH (08:11)
[2019-02-27] MEDS: Aspirin Chewable 81 MG TAB PO SCH (08:11)
[2019-02-27] MEDS: Allopurinol 300 MG TAB PO SCH (08:11)
[2019-02-27] MEDS: Amiodarone 200 MG TAB PO SCH (08:12)
[2019-02-27] MEDS: Metolazone 2.5 MG TAB PO SCH (08:54)
[2019-02-27] MEDS: HumaLOG 300 UNITS/3 ML VIAL SC PRN (11:58)
[2019-02-27 15:50] VITALS: BP 106/56; TEMP 98.5
[2019-02-27] MEDS ORDERED: Potassium Chloride 20 MEQ TAB PO SCH (16:00)
--- NOTE | 2019-02-28 02:56 | DIS ---
DATE OF ADMISSION: 02/26/2019 DATE OF DISCHARGE: 02/27/2019 PRIMARY CARE PROVIDER: Dr. Parker Candelario. DISCHARGE DIAGNOSES: 1. Acute on chronic systolic congestive heart failure, NYHA stage III. 2. Hypokalemia. 3. Medication noncompliance. CONDITION OF THE PATIENT ON DAY OF DISCHARGE: Stable. I assessed Mr. Dye on the day of discharge. He denies chest pain. Shortness of breath is better. Vital signs are stable. S1 and S2 are heard, regular. Lungs are clear to auscultation bilaterally. DISCHARGE MEDICATIONS: No change was made to his pre-admission home medications as dictated by Ms. Kelsey on her history and physical note dated 02/26/2019. CONSULTATIONS DURING THIS HOSPITALIZATION: Cardiology, Dr. Zhu. HOSPITAL COURSE: Mr. Dye is a pleasant 68-year-old gentleman, who was admitted to [facility] for CHF exacerbation on 02/26/2019. He had not picked up his medication refills and was not taking his medications for a few weeks prior to this hospitalization. He was treated with intravenous diuretics and improved clinically. He was seen by Cardiology Service. He has been cleared for discharge by Cardiology Service. On the day of discharge, Mr. Dye has sodium 141, potassium 3.2, which is being replaced, blood urea nitrogen 48, creatinine 2.01, white count 11,700, hemoglobin 10.8, and platelet count 179,000. He has been advised to have his creatinine and electrolytes checked through primary care provider's office in 5 to 7 days. POST-DISCHARGE FOLLOWUP: With primary care provider in 3 days' time, with Dr. Zhu in 2 to 3 weeks and with [facility]. Many thanks for allowing me to participate in your patient's care. Please feel free to contact me with any questions or concerns. DISCHARGE DESTINATION: Home. Job ID: [id number]
== END 2019-02-27 18:10 | disposition home or self-care (01) ==
LOC: ERS 22:08 → 2SW 02-26 02:11
PROVIDERS: ADMIT Internal Medicine; ATTEND Internal Medicine
DX: I13.0 Hypertensive heart and chronic kidney disease with heart failure and stage 1 through stage 4 chronic kidney disease, or unspecified chronic kidney disease (principal); E11.22 Type 2 diabetes mellitus with diabetic chronic kidney disease; N18.9 Chronic kidney disease, unspecified; I50.23 Acute on chronic systolic (congestive) heart failure; I25.10 Atherosclerotic heart disease of native coronary artery without angina pectoris; E78.5 Hyperlipidemia, unspecified; K21.9 Gastro-esophageal reflux disease without esophagitis; J45.909 Unspecified asthma, uncomplicated; M10.9 Gout, unspecified; I48.20 Chronic atrial fibrillation, unspecified; E87.6 Hypokalemia; F32.9 Major depressive disorder, single episode, unspecified; Z79.01 Long term (current) use of anticoagulants; Z79.4 Long term (current) use of insulin; Z79.82 Long term (current) use of aspirin; Z79.899 Other long term (current) drug therapy; Z88.0 Allergy status to penicillin; Z95.0 Presence of cardiac pacemaker; Z95.1 Presence of aortocoronary bypass graft; Z95.5 Presence of coronary angioplasty implant and graft; Z66 Do not resuscitate; Z91.14 Patient's other noncompliance with medication regimen
CPT/HCPCS: 80048 ×2; 82962 ×2; 84484 ×3; 85025 ×2; 93005; 99285; G0378 ×3; 36415; 36416; J1815

== ENCOUNTER 2019-06-23 16:10 | Emergency (ER) | payer MEDICARE, MEDICAID ==
[2019-06-23] MEDS ORDERED: DOBUTamine 500 mg/250 ml 250 ML ONE (16:17)
[2019-06-23 16:37] LABS: #Basophils 0.1 thou/uL (0.0-0.2); #Eosinphils 0.4 thou/uL (0.0-0.7); #Lymphocytes 1.4 thou/uL (1.20-3.40); #Monocytes 0.7 thou/uL (0.11-0.59); #Neutrophils 5.3 thou/uL (1.40-6.50); %Basophils 0.7 % (0.0-1.0); %Eosinophils 5.3 % (0.0-10.0); %Lymphocytes 17.7 % (21.0-51.0); %Monocytes 8.7 % (0.0-10.0); %Neutrophils 67.5 % (42.0-75.0); Hemoglobin 11.4 g/dL (14.0-18.0); Mean Corpuscular HGB CONC 32.4 g/dL (32.0-36.0); Mean Corpuscular Hemoglobin 32.9 pg (27.0-31.0); Mean Platelet Volume 10.8 fL (7.4-10.4); Platelet Count 163 thou/uL (130-400); RBC Distribution Width 15.1 % (11.5-14.5); Red Blood Cell (RBC) Count 3.47 mill/uL (4.70-6.10); White Blood Cell (WBC) Count 7.8 thou/uL (4.8-10.8)
--- NOTE | 2019-06-23 16:38 | RAD ---
Chest one view HISTORY: Dyspnea. Chest pain. COMPARISON: 11/25/2018. FINDINGS: Cardiac silhouette is magnified and enlarged. Pulmonary vasculature is unremarkable. Medias tinum is midline with postoperative changes and a dual lead left subclavian cardiac electronic device. No lobar consolidation or evidence of pneumothorax. Slight leftward curvature of the thoracic spine. IMPRESSION: No evidence of pulmonary edema or other acute abnormalities. Cardiomegaly is stable.
[2019-06-23 17:01] LABS: ALT (SGPT) 11 U/L (8-55); AST (SGOT) 23 U/L (5-34); Albumin 4.7 g/dL (3.4-4.8); Alkaline Phosphatase 136 U/L (40-110); Anion Gap 13 mmol/L (10-20); BUN (Urea Nitrogen) 62 mg/dL (8.4-25.7); Calc. Creatinine Clearance 0 mL/min (70-130); Calcium 9.7 mg/dL (7.8-10.44); Carbon Dioxide 26 mmol/L (23-31); Chloride 105 mmol/L (98-107); Estimated GFR-MDRD 28; Globulin 3.3 g/dL (2.4-3.5); Glucose 121 mg/dL (80-115); Sodium 140 mmol/L (136-145)
[2019-06-23 17:24] LABS: CKMB 1.1 ng/mL (0-6.6)
--- NOTE | 2019-06-23 20:36 | CON ---
DATE OF CONSULTATION: 06/23/2019 This is a consultation note from [facility] to emergency room at [facility]. REASON FOR CONSULTATION: Management of acute heart failure. HISTORY OF PRESENT ILLNESS: Mr. Nicolas Dye is a 69-year-old gentleman with heart failure with reduced ejection fraction with LVEF of 15%, was asked to come to the ER for acute on chronic heart failure. About 10 weeks ago , Mr. Nicolas Dye was in state of anasarca due to heart failure with reduced ejection fraction. Carvedilol, Entresto, and diuretics were used. Initially, he had excellent result. His anasarca has gone away. He lost over 30 pounds. However, he is status plateaued. Due to ischemic cardiomyopathy in nature, it was felt that he is not likely to recover. He was seen by [facility] for advanced heart failure care with consideration of left ventricular assist device implantation. He was returned to [facility] for further outpatient care. He then started to deteriorate. His blood pressure started trending down. His renal functions trended worse. His creatinine has steadily increased. Even though, he was much better he felt like his abdominal girth has greatly increased. His walking distance is less than half of block. He cannot walk up from first to second floor. He has to stop midway at a landing between first and second floor to rest before proceeding to walk up stair. He also has early satiety. His paroxysmal nocturnal dyspnea also has returned. He will wake up middle of the night, needing to sit up to breathe at least twice a week. Due to the worsening of renal function, decrease in blood pressure, and increasing retention of fluid, he was asked to be assessed in the ER with a potential transfer to [facility]. PAST MEDICAL HISTORY: Significant for: 1. Heart failure with reduced ejection fraction, likely due to ischemic cardiomyopathy with left ventricular ejection fraction of 15%. 2. History of coronary artery bypass graft. 3. Hypertension. 4. Hyperlipidemia. 5. Type 2 diabetes, but now on insulin. SOCIAL HISTORY: He was smoker in the distant past, but he stopped smoking in 1979. He does not drink any alcohol. He does not use any illicit drugs. He is a and lives by himself. However, the daughter lives across the street from him. FAMILY HISTORY: His father at age 80 with combination of heart problem with diabetes. His mother at age of 50 due to cancer, but she also had diabetes. He has a brother, who of cancer and another sister, who of a cancer at younger ages. ALLERGIES AND SENSITIVITIES: There is report of penicillin allergy. CURRENT MEDICATIONS: At outpatient include: 1. Apixaban 5 mg b.i.d. 2. Amiodarone 200 mg daily. 3. Entresto 49-51 mg tablets. However, he only takes half tablets twice a day, so he is actually taking 24-26 mg twice a day. 4. Carvedilol 12.5 mg twice a day. 5. Torsemide 20 mg daily. 6. Tramadol 50 mg once per day as needed. 7. Albuterol inhaler two puffs as needed. 8. Sertraline 50 mg daily. 9. Allopurinol 600 mg daily. 10. Donepezil 5 mg daily. 11. Memantine 5 mg daily. 12. Insulin detemir 22 units subcutaneous once a day at bedtime. 13. Famotidine 20 mg daily. 14. Potassium chloride 20 mEq daily. REVIEW OF SYSTEMS: GENERAL: There is no fever or chills. HEENT: There is no changing in vision, hearing, or swallowing. PULMONARY: He does get short of breath with walking, half a block was about all he can do. He does have PND twice a week. GI: He has early satiety. : There is no difficulty in urination. MUSCULOSKELETAL: There is some back pain, but there are no diffuse joint pains. INTEGUMENT: There are no new skin breakdowns or rashes. NEUROLOGIC: There is no focal deficit. PSYCHIATRIC: There is no depression. PHYSICAL EXAMINATION: VITAL SIGNS: Heart rate 58, blood pressure 93/58, and he is saturating about 97 % on room air. GENERAL: He is alert and conversational, but looks a little bit fatigued. HEENT: Show EOMI, PERRL. Oropharynx shows poor dentition. He does complain of gum pains with moist mucosa. There is no erythema. No exudate. NECK: JVP is about 13 cm with positive hepatojugular reflux. LUNGS: Clear to auscultation with good air movement on upper lung patiño. However, there are slight crackles on bibasilar lung patiño. HEART: Regular rate and rhythm with occasional irregularity. There is 3/6 holosystolic murmur at the apex with radiation to the left axilla. ABDOMEN: Distended, soft, and nontender. EXTREMITIES: Lower extremities, he has about 1 cm pitting edema from feet about one-third way towards his knees. IMAGING: Chest x-ray was then reviewed. It shows cardiomegaly. There is a peribronchial cuffing and there are also Mee B-lines, so consequently he has a mild amount of pulmonary edema. LABORATORY DATA: His lab shows sodium 138, potassium 4.2, BUN of 57, creatinine of 2.57, this is increased from 2.22 of eight days ago. The echocardiogram report from April 16, 2019 showed LVEF was 15%. ASSESSMENT: A 69-year-old gentleman likely to reside in [place] Heart Association stage D and [place] Heart Association class 3B heart failure with reduced ejection fraction. It is ischemic cardiomyopathy. It contains both systolic and diastolic dysfunction. He is showing signs of end organ damage such as that the renal function now has worsened to creatinine of 2.57. His systolic blood pressure is drifting downward, now is at 93. Therefore, he needs urgent intervention. Otherwise, he faces a catastrophic decompensation. Please see the following for detailed recommendations. RECOMMENDATIONS: 1. Start dobutamine 2.5 mcg/kg/minute IV GTT; if systolic blood pressure continues to be below 95 mmHg, then increased to 5 mcg/kg/minute IV GTT. 2. Please hold Entresto. 3. We will coordinate with [facility] of Dr. Chencho Perales, he is the medical liaison for advanced heart failure heart transplant at [facility] and Dr. Mervin Miller, he is a transplant surgeon. 4. [facility] has been contacted. At this point, they have accepted the patient. 5. Please arrange for transfer the patient to [facility] in [place]. Again if systolic blood pressure is below 95 mmHg, then increase dobutamine to 5 mcg/kg per minute during transport. It has been a pleasure of seeing Mr. Nicolas Dye. If any questions, please give me a call. Job ID: [id number] [facility] CENTERShayne
== END 2019-06-23 18:41 | disposition short-term general hospital (02) ==
LOC: ERS 16:10
DX: I11.0 Hypertensive heart disease with heart failure (principal); I50.9 Heart failure, unspecified; N17.9 Acute kidney failure, unspecified; I25.10 Atherosclerotic heart disease of native coronary artery without angina pectoris; I48.91 Unspecified atrial fibrillation; E11.9 Type 2 diabetes mellitus without complications; E78.2 Mixed hyperlipidemia; M10.9 Gout, unspecified; F32.9 Major depressive disorder, single episode, unspecified; J45.909 Unspecified asthma, uncomplicated; Z87.891 Personal history of nicotine dependence; Z79.4 Long term (current) use of insulin; Z79.51 Long term (current) use of inhaled steroids; Z79.899 Other long term (current) drug therapy; Z79.891 Long term (current) use of opiate analgesic
CPT/HCPCS: 36415; 71045; 80053; 82553; 84484; 85025; 93005; 94640; 96365; 96366; J1250; J7620

== ENCOUNTER 2019-09-20 20:51 | Inpatient (IN) | payer MEDICARE, MEDICAID ==
[2019-09-20] MEDS ORDERED: Cyclobenzaprine 10 MG TAB PO PRN (23:13)
[2019-09-20] MEDS ORDERED: Ondansetron ODT 4 MG TAB PO PRN (23:13)
[2019-09-20] MEDS ORDERED: Insulin Regular 300 UNITS/3 ML VIAL SC PRN (23:13)
[2019-09-20] MEDS ORDERED: hydrALAZINE 20 MG/ML VIAL SLOW IVP PRN (23:13)
[2019-09-20] MEDS ORDERED: Morphine 4 MG/ML VIAL SLOW IVP PRN (23:13)
[2019-09-20] MEDS ORDERED: Dextrose 5% in Water 1,000 ML IV PRN (23:13)
[2019-09-20] MEDS ORDERED: traMADol HCl 50 MG TAB PO PRN (23:13)
[2019-09-20] MEDS ORDERED: Ondansetron PF 4 MG/2 ML Vial IVP PRN (23:13)
[2019-09-20] MEDS ORDERED: Dextrose 50% Abboject 50 ML SYRINGE SLOW IVP PRN (23:13)
[2019-09-20 23:17] VITALS: BMI 30.9
[2019-09-20] MEDS: Acetaminophen 325 MG TAB PO SCH (23:32)
--- NOTE | 2019-09-21 00:13 | HP ---
REQUESTING PHYSICIAN: Dr. Mckinnon. ATTENDING SURGEON: Dr. Villalta. CONSULTATIONS: Orthopedics, Dr. Burns. HISTORY OF PRESENT ILLNESS: The patient is a 69-year-old man, who was brought to our facility after a ground level fall, in which he sustained a left femoral neck fracture. The patient was reportedly dancing with a relative at a wedding when he tripped and fell. He was taken by ground EMS to [place] where he underwent evaluation, examination, and there was a concern for possible CVA, but that evaluation was unremarkable, somewhat complicated by reports of him being unable to move his left lower extremity, which was due to his pain from his hip fracture. The patient was brought to our facility to undergo evaluation and examination and obtain orthopedic consultation. ALLERGIES: PENICILLIN. CURRENT MEDICATIONS: ProAir, allopurinol, carvedilol, Eliquis, amiodarone, Entresto, torsemide, tramadol, sertraline, benazepril, and memantine. PAST MEDICAL HISTORY: Diabetes, gastroesophageal reflux disease, coronary artery disease, gout, congestive heart failure, atrial fibrillation, hyperlipidemia, depression, dementia, ascites, COPD, and chronic kidney disease. PAST SURGICAL HISTORY: AICD placement, cholecystectomy, three-vessel coronary artery bypass graft surgery. SOCIAL HISTORY: The patient is a former tobacco user. He quit smoking more than 10 years ago. He lives at home with family. Denies drug or alcohol use. REVIEW OF SYSTEMS: 10-point review of systems is negative as otherwise stated. PHYSICAL EXAMINATION: VITAL SIGNS: Blood pressure 118/63, heart rate 65, respirations 23, oxygen saturation is 99% on 2 L via nasal cannula, temperature is 97.6. GENERAL: The patient is resting comfortably in bed. He is awake, conversant, and appropriate. He is a poor historian, but he was pleasant and interacted and followed simple commands. His chief complaint was left hip pain when he moved. HEENT. Head is normocephalic. Eyes, extraocular motion intact, though the patient did have difficulty following my fingers, but were grossly intact. Pupils PERRLA bilaterally. Ears are atraumatic without discharge. Nose is atraumatic without discharge. Oropharynx is clear. NECK: Nontender. Trachea is midline. No JVD. CHEST: Clear to auscultation with moderate inspiratory and expiratory effort. HEART: Regular rate and rhythm. ABDOMEN: Soft and nontender with hypoactive bowel sounds. EXTREMITIES: Neurovascularly intact x4 with tenderness to palpation to the left hip consistent with his fracture. BACK: By report is atraumatic and nontender. LABORATORY FINDINGS: White blood cell count 8.4, hemoglobin 9.5, hematocrit 31.6, platelets 234. Sodium 135, potassium 4.2, chloride 105, CO2 of 17, BUN 73, creatinine 2.70, glucose 188. LFTs are unremarkable with the exception of alkaline phosphatase of 127. Troponin 0.147. BNP 844. INR 1.9, PT 22, and PTT 35. RADIOGRAPHIC REPORTS: CT of the brain without contrast shows no evidence of acute intracranial abnormality. AP chest x-ray shows no evidence of acute cardiopulmonary disease. CT of the pelvis without contrast shows left femoral neck fracture and moderate ascites. Left hip views show a left femoral neck fracture. ASSESSMENT: 1. Status post ground level fall. 2. Left femoral neck fracture. 3. History of severe coronary artery disease, congestive heart failure, chronic kidney disease, dementia, diabetes, and gastroesophageal reflux disease. PLAN: Plan will be to admit the patient to the surgical floor in light of his Eliquis use and significant comorbidities we will ensure that he is medically optimized prior to surgery. We will order an echo and have Cardiology evaluate him. Reviewing his past medical history, I discovered his ejection fraction on a prior echo was 15%. We will hold his Eliquis. It is noted in review of his past labs that he has chronically elevated troponin and BNP. We will repeat these labs in the morning. We will continue his home medications with the exception of his Eliquis. The patient was evaluated in the emergency department by Dr. Burns. The evaluation, examination, laboratory, and radiographic findings will be discussed with Dr. Villalta after this dictation. Job ID: [id number] [id number]
--- NOTE | 2019-09-21 03:08 | CON ---
DATE OF CONSULTATION: 09/20/2019 HISTORY OF PRESENT ILLNESS: Mr. Dye is a 69-year-old male who is known to my service. Previously had a knee scope for washout for his left knee swelling 5 years ago. The patient had a fall from a ground level at a wedding. He presents today with concern about a potential stroke, inability to move his leg. The patient had CT scan of his abdomen and pelvis, which showed a left femoral neck fracture with some ascites. The patient was brought here for higher level of care. PAST MEDICAL HISTORY: Includes coronary artery disease, congestive heart failure, followed by Dr. Schulz, most recently in June 2019 with ejection fraction of 15%, arrhythmia, atrial fibrillation, AICD, diabetes type 2, gastroesophageal reflux disease as well as history of liver failure with chronic alcoholism, which has been stopped recently, hyperlipidemia, hypercholesterolemia, triglycerides, pulmonary disease, asthma, chronic renal insufficiency and gout. PAST SURGICAL HISTORY: Coronary artery bypass graft, three vessels; cholecystectomy; hernia repair; pacemaker placed. The patient has also had a arthroscopic knee washout in 2014. ALLERGIES: INCLUDE PENICILLIN. MEDICATIONS: ProAir, allopurinol, carvedilol, Eliquis, amiodarone, Entresto, torsemide, tramadol, sertraline, benazepril and memantine. SOCIAL HISTORY: The patient does have a history of smoking, but states he quit 10 years ago. He also has a history of heavy drinking, currently not. The patient retired 3 years ago. He has lived in the [facility], now moved up to [place] where he has been. REVIEW OF SYSTEMS: Noncontributory. PHYSICAL EXAMINATION: VITAL SIGNS: On arrival were 118/63, 65, 23, 97.6, 99%. GENERAL: male resting in bed. Responds to questions. Appears dazed. EXTREMITIES: The patient's left lower extremity pain with internal and external rotation. He has sensation intact distally L4-S1 distribution. He is able to plantar flex and dorsiflex his toes. He has sluggish cap refill, thready pulses. The patient's knee is soft. No effusion. No signs of compartment syndrome. LABORATORY VALUES: Show elevated creatinine at 2.7. He has an INR of 1.9. He has a glucose of 188. Hematocrit 31. AST and ALT within normal limits. CT scan of the abdomen and pelvis shows ascites as well as basicervical femoral neck fracture. IMPRESSION: 1. Left basicervical femoral neck fracture. 2. Congestive heart failure. 3. Diabetes. 4. Hypertension. 5. Asthma. 6. Apparent liver disease with ascites. 7. Implantable cardioverter-defibrillator pacemaker, ejection fraction of 15%. 8. Dementia. 9. Hyperlipidemia/cholesterol. ASSESSMENT AND PLAN: The patient has complex medical problem. He currently has an elevated INR of 1.9. He also has a cardiac evaluation which was done at [facility] according to Dr. Schulz, the congestive heart failure specialist back in June showing ejection fraction of 15%. The patient will be admitted to Trauma under Jorgito Velazquez. He will be evaluated by Cardiology and potentially Gastroenterology. The patient will require left hemiarthroplasty versus total hip arthroplasty given the patient's mobility status, which is per his report only around the neighborhood. Given his functional status and his current health I think likely we will trend toward the hemiarthroplasty. To decrease surgical time as well as bleeding, potential failure risks. I will discuss this further with the patient as well as family in the morning. He will likely need his echo read and performed as well as multiple consults. We will need the INR to correct. He would like to proceed with surgery on Sunday. The patient and I discussed with him the risks and benefits of surgery to include pain, scar, bleeding, infection, damage to vital structures, fracture below the level of the stem, blood clots, loss of life or limb. We will discuss this again. I think the patient has a high risk and has a very high mortality associated with this procedure. We will further evaluate the patient in the morning. Job ID: [id number] [facility], [place]
[2019-09-21] MEDS: Acetaminophen 325 MG TAB PO SCH ×4 (05:12→23:08)
[2019-09-21] MEDS: Insulin Regular 300 UNITS/3 ML VIAL SC PRN ×3 (05:13→17:26)
[2019-09-21 05:32] LABS: #Eosinphils 0.2 thou/uL (0.0-0.7); #Lymphocytes 0.9 thou/uL (1.20-3.40); #Monocytes 1.2 thou/uL (0.11-0.59); #Neutrophils 13.3 thou/uL (1.40-6.50); %Basophils 0.2 % (0.0-1.0); %Eosinophils 1.5 % (0.0-10.0); %Lymphocytes 5.9 % (21.0-51.0); %Monocytes 7.4 % (0.0-10.0); Hemoglobin 10.4 g/dL (14.0-18.0); Mean Corpuscular HGB CONC 31.5 g/dL (32.0-36.0); Mean Corpuscular Hemoglobin 31.7 pg (27.0-31.0); Mean Platelet Volume 11.3 fL (7.4-10.4); Platelet Count 218 thou/uL (130-400); RBC Distribution Width 16.4 % (11.5-14.5); Red Blood Cell (RBC) Count 3.28 mill/uL (4.70-6.10); White Blood Cell (WBC) Count 15.7 thou/uL (4.8-10.8)
[2019-09-21 05:57] LABS: Anion Gap 16 mmol/L (10-20); BUN (Urea Nitrogen) 79 mg/dL (8.4-25.7); Calc. Creatinine Clearance 35 mL/min (70-130); Carbon Dioxide 18 mmol/L (23-31); Chloride 106 mmol/L (98-107); Estimated GFR-MDRD 34; Glucose 154 mg/dL (80-115); Phosphorus 3.7 mg/dL (2.3-4.7); Potassium 4.1 mmol/L (3.5-5.1); Sodium 136 mmol/L (136-145)
[2019-09-21] MEDS: Albuterol Sulfate 2.5 mg/3 ml Neb NEB SCH ×4 (06:45→23:41)
--- NOTE | 2019-09-21 07:40 | RAD ---
2 VIEWS LEFT HIP: Date: 09/20/2019 COMPARISON: CT pelvis dated 09/20/2019. HISTORY: Fall while dancing at a wedding with left hip fracture. FINDINGS: Two views of the left hip show a moderately displaced fracture of the left femoral neck. Mild degener ative change seen in the left hip. Surrounding soft tissue swelling is seen. IMPRESSION: Left femoral neck fracture. POS: EAA
[2019-09-21] MEDS: Allopurinol 300 MG TAB PO SCH ×2 (08:57→20:04)
[2019-09-21] MEDS: Bumetanide 1 MG TAB PO SCH (08:57)
[2019-09-21] MEDS: Amiodarone 200 MG TAB PO SCH (08:57)
[2019-09-21] MEDS: Famotidine 20 MG TAB PO SCH (08:57)
[2019-09-21] MEDS: Carvedilol 6.25 MG TAB PO SCH ×2 (08:58→20:01)
--- NOTE | 2019-09-21 10:58 | PRG ---
DATE OF SERVICE: 09/21/2019 CHIEF COMPLAINT: Left hip pain. HISTORY OF PRESENT ILLNESS: Mr. Dye is a 69-year-old male with history of dementia, congestive heart failure, diabetes, end-stage renal disease, liver disease, ascites, who presents after a ground level fall. The patient's daughter is [id number] and is at bedside. The patient is a DNR. He is currently responding to questions. PHYSICAL EXAMINATION: VITAL SIGNS: Temperature 96.7, pulse 72, respirations 16, blood pressure 117/ 64. GENERAL: The patient is alert to person, but not place or time. EXTREMITIES: His left lower extremity has pain with internal and external rotation. He has weak dorsiflexion and plantar flexion, but difficult to get exam. LABORATORY DATA: Today, the patient's creatinine is 2.3. H and H of 10 and 32. PT and INR are pending. IMPRESSION: Left femoral neck fracture. ASSESSMENT AND PLAN: The patient will need medical management for stabilization tomorrow for left hemiarthroplasty. The patient's daughter that I would not perform a total hip arthroplasty given the patient's current health condition and need for an expedient surgery, so this will likely give him five good years given that the patient is a household ambulator, he may lose level of function. I discussed the mortality associated with this procedure. I also discussed with the patient risks and benefits of the surgery to include pain, scar, bleeding, infection, damage to vital structures, decreased range of motion and strength, failure of procedure, shortening and lengthening of limb, fracture below the stem, loss of life, potential blood clots. Family understands these risks and benefits. They elected to proceed. We will plan to do that tomorrow once medically optimized. Job ID: [id number] [facility]
--- NOTE | 2019-09-21 11:59 | HP ---
HISTORY: Mr. Dye is a 69-year-old male. He presented to the hospital last night after he fell, apparently at a wedding. X-rays confirmed a left femoral neck fracture. The patient has already been seen by Dr. Burns. The patient was also seen in the emergency room by KAYLI Cox. I have evaluated the patient, performed physical examination, reviewed the imaging studies and all of the history in this documentation. I agree with his history and physical examination and the plan. The patient unfortunately has multiple medical comorbidities including severe congestive heart failure as well as dementia. He currently has markedly diminished sensorium and is unable to speak with me at all. I will therefore decrease his morphine dosage as this maybe was leading to unacceptable sedation. His medical evaluation will continue to ensure that he is appropriately stable prior to any surgery by Orthopedics. The patient is taking Eliquis and it would certainly be appropriate to allow his coagulation capabilities to normalize before proceeding with the surgery. Job ID: [id number]
--- NOTE | 2019-09-21 19:17 | PRG ---
DATE OF SERVICE: 09/21/2019 SUBJECTIVE: Mr. Dye is a 69-year-old male who is status post ground level fall. He sustained left hip fracture. He suffered from severe coronary artery disease, CHF, chronic kidney disease, dementia, diabetes. The patient reports pain is well controlled. He tolerated with his diet. His vital signs stable. Dr. Burns discussed with the patient's family, decided to proceed with left hip hemiarthroplasty mostly for pain control and improved function. The patient will be on n.p.o. at midnight and ready for surgery tomorrow. OBJECTIVE: GENERAL: Currently, the patient is lying in bed, comfortable with no acute respiratory distress. VITAL SIGNS: Temperature 98.2, heart rate 64, respiratory rate 16, O2 saturation 98% on room air, blood pressure 102/59. LUNGS: Clear bilaterally. HEART: Regular rate and rhythm. ABDOMEN: Soft and nondistended. EXTREMITIES: Neurovascularly intact x4. NEUROLOGIC: No focal neurologic deficits. DIAGNOSTIC WORKUP: Cardiac ultrasound shows EF of 20% to 25%. Left ventricle size is mildly increased. ASSESSMENT: 1. Status post ground level fall. 2. Left femoral neck fracture. 3. History of severe coronary artery disease, congestive heart failure with ejection fraction of 20% to 25%, chronic kidney disease, dementia, diabetes. PLAN: Plan will be to continue supportive care. Continue pain control. Continue nonpharmacological DVT prophylaxis. The patient will be on n.p.o. at midnight and ready for left hip hemiarthroplasty tomorrow. Postop, the patient will need to work with physical therapy and occupational therapy. Anticipate placement in rehabilitation facility or long-term home facility. Job ID: [id number]
[2019-09-21] MEDS: Donepezil HCl 5 MG TAB PO SCH (20:02)
[2019-09-21] MEDS: Atorvastatin Calcium 40 MG TAB PO SCH (20:03)
[2019-09-21] MEDS: Senokot S 8.6-50 MG TAB PO SCH (20:04)
[2019-09-21] MEDS ORDERED: Cyclobenzaprine 10 MG TAB PO PRN (21:00)
--- NOTE | 2019-09-21 21:24 | CON ---
DATE OF CONSULTATION: HISTORY OF PRESENT ILLNESS: The patient is a 69-year-old gentleman with a history of ischemic cardiomyopathy, who presents with a hip fracture and needs to undergo surgery. The patient is unable to give any type of coherent history. He has previously undergone coronary bypass graft surgery in 2015. He has a history of progressive ischemic cardiomyopathy. He has undergone evaluation in [place] for possible LVAD. He has been admitted on several occasions and been seen by the heart failure clinic. The patient was admitted after he had a fall. PAST MEDICAL HISTORY: 1. Cardiomyopathy. 2. Coronary artery disease. 3. Hypertension. 4. Diabetes mellitus. 5. Dyslipidemia. PAST SURGICAL HISTORY: Cholecystectomy, hernia surgery, and coronary artery bypass surgery. MEDICATIONS: See nursing list. SOCIAL HISTORY: Former smoker. ALLERGIES: PENICILLIN. REVIEW OF SYSTEMS: Not obtainable. PHYSICAL EXAMINATION: GENERAL: This is a disoriented gentleman, in no acute distress. VITAL SIGNS: Blood pressure 102/59. NECK: No jugular venous distention. LUNGS: Clear to auscultation. HEART: Regular rate and rhythm. Normal S1 and S2. 2/6 systolic murmur. ABDOMEN: Nondistended. EXTREMITIES: Showed no edema. VASCULAR: Radial pulse 2+. LABORATORY DATA: Sodium 136, potassium 4.1, chloride 106, bicarbonate 18, glucose 154. White blood cell count 15.7, hemoglobin 10.4, hematocrit 32.9, and platelets were 218. His EKG is not available. Echocardiogram revealed severe decrease left ventricular ejection fraction 20% to 25% with a dilated left ventricle. IMPRESSION: 1. Cardiomyopathy. 2. History of coronary artery bypass surgery. 3. Hypertension. 4. Dyslipidemia. 5. History of automatic implantable cardioverter defibrillator placement. This gentleman has sustained a hip fracture. He appears to be an acceptable, but increased risk of cardiac complication for undergoing orthopedic surgery. He is not in acute congestive heart failure. We will try to obtain a history tomorrow when the patient is not sedated. We will check the patient's EKG. We will follow this patient with you through his hospitalization. Job ID: [id number] [facility]
[2019-09-22] MEDS: Sodium Chloride 0.9% 1,000 ML IV SCH ×2 (01:00→12:28)
--- NOTE | 2019-09-22 01:56 | PRG ---
DATE OF SERVICE: 09/22/2019 SUBJECTIVE: The patient is currently on the surgical floor. He is status post a ground level fall when he sustained left hip fracture. The patient has a significant coronary artery disease and CHF history, requiring him to undergo echocardiogram and cardiac clearance prior to his surgery. The patient also has significant dementia, chronic kidney disease, and diabetes complicating his case. Today, he underwent echocardiogram, which shows an EF of 20% to 25% per Dr. Castañeda. The patient appears to be acceptable, but has an increased risk of cardiac complications for undergoing orthopedic surgery. So at this time, the plan is to have him n.p.o. after midnight in preparation for surgery tomorrow. Today, the patient reportedly had no issues. His pain was controlled. He tolerated liquids, but had a little appetite. OBJECTIVE: VITAL SIGNS: Stable. The patient is afebrile. GENERAL: The patient is resting comfortably in bed. He is somewhat somnolent today. He answers primarily with yes or no. He was able to tell me that he is in the hospital, but he believes that he was in [place] as opposed to [place]. He did state that he was not having any pain. LUNGS: Clear bilaterally with moderate inspiratory and expiratory effort. HEART: Regular rate and rhythm. ABDOMEN: Soft, nondistended with active bowel sounds. EXTREMITIES: Neurovascularly intact x4. ASSESSMENT AND PLAN: 1. Status post ground level fall. 2. Left femoral neck fracture, awaiting surgery. 3. History of cardiomyopathy, history of coronary artery bypass graft, congestive heart failure, chronic kidney disease, dementia, diabetes, and gastroesophageal reflux disease. PLAN: Plan will be to continue supportive care. We will begin general IV hydration, n.p.o. after midnight. Pain control, pulmonary toilet, gastritis, and mechanical VTE prophylaxis. Postoperatively, we will begin physical and occupational therapy and await placement decision. Job ID: [id number]
[2019-09-22 05:17] LABS: #Eosinphils 0.2 thou/uL (0.0-0.7); #Monocytes 1.1 thou/uL (0.11-0.59); %Basophils 0.3 % (0.0-1.0); %Eosinophils 1.7 % (0.0-10.0); %Lymphocytes 6.9 % (21.0-51.0); %Monocytes 7.8 % (0.0-10.0); %Neutrophils 83.3 % (42.0-75.0); Hemoglobin 10.4 g/dL (14.0-18.0); Mean Corpuscular HGB CONC 30.8 g/dL (32.0-36.0); Mean Corpuscular Hemoglobin 31.5 pg (27.0-31.0); Platelet Count 207 thou/uL (130-400); RBC Distribution Width 16.7 % (11.5-14.5); Red Blood Cell (RBC) Count 3.32 mill/uL (4.70-6.10); White Blood Cell (WBC) Count 14.4 thou/uL (4.8-10.8)
[2019-09-22 05:20] LABS: INR-International Normal Ratio 1.8; PTT 35.3 SEC (22.9-36.1); Prothrombin Time 21.2 sec (12.0-14.7)
[2019-09-22 05:31] LABS: Anion Gap 17 mmol/L (10-20); BUN (Urea Nitrogen) 74 mg/dL (8.4-25.7); Calc. Creatinine Clearance 37 mL/min (70-130); Carbon Dioxide 16 mmol/L (23-31); Chloride 109 mmol/L (98-107); Estimated GFR-MDRD 36; Glucose 154 mg/dL (80-115); Magnesium 2.1 mg/dL (1.6-2.6); Phosphorus 3.7 mg/dL (2.3-4.7); Sodium 138 mmol/L (136-145)
[2019-09-22] MEDS: Acetaminophen 325 MG TAB PO SCH ×3 (06:40→16:04)
[2019-09-22] MEDS: Albuterol Sulfate 2.5 mg/3 ml Neb NEB SCH ×3 (07:17→20:10)
[2019-09-22] MEDS: Morphine 2 MG/ML SYRINGE SLOW IVP PRN ×4 (08:26→23:21)
[2019-09-22] MEDS ORDERED: Phytonadione 10 MG/ML AMP PO ONE (08:30)
[2019-09-22] MEDS: Allopurinol 300 MG TAB PO SCH ×2 (08:42→21:00)
[2019-09-22] MEDS: Polyethylene Glycol 3350 17 GM Packet PO SCH (08:43)
[2019-09-22] MEDS: Bumetanide 1 MG TAB PO SCH (08:43)
[2019-09-22] MEDS: Carvedilol 6.25 MG TAB PO SCH ×2 (08:43→21:03)
[2019-09-22] MEDS: Amiodarone 200 MG TAB PO SCH (08:43)
[2019-09-22] MEDS: Famotidine 20 MG TAB PO SCH (08:43)
[2019-09-22] MEDS: Senokot S 8.6-50 MG TAB PO SCH ×2 (08:44→21:03)
--- NOTE | 2019-09-22 11:12 | PRG ---
DATE OF SERVICE: 09/22/2019 SUBJECTIVE: Mr. Treviños status is unchanged overnight. He was seen and evaluated by Dr. Pancho Castañeda over the weekend. He has a hip fracture. No current complaints. Mr. Dye does have a previous history of ischemic cardiomyopathy, although no significant ischemia noted on a recent stress study performed in 2019. OBJECTIVE: VITAL SIGNS: Blood pressure 116/61, pulse 75, and temperature 98.3. LUNGS: Clear to auscultation. HEART: Regular rate and rhythm. ABDOMEN: Soft, nontender, and nondistended. EXTREMITIES: No edema. PERTINENT LABORATORY DATA: Hemoglobin 10.4. Creatinine 2.2. IMPRESSION: 1. Hip fracture. 2. Coronary artery disease. 3. Ischemic cardiomyopathy. RECOMMENDATIONS: At this point, Mr. Dye's status for surgery is not felt to be prohibitive. He is at increased risk, but felt to be acceptable. Otherwise, I have no recommendations. Job ID: [id number]
[2019-09-22] MEDS ORDERED: Clindamycin/D5W 900 MG in Premix Bag 1 BAG IVPB SCH (12:00)
--- NOTE | 2019-09-22 13:06 | PRG ---
DATE OF SERVICE: 09/22/2019 SUBJECTIVE: Mr. Dye is a 69-year-old man with history of chronic congestive cardiomyopathy. The patient was admitted following a ground level fall during which he sustained the left femoral neck fracture. He is on Eliquis. The last dose may have been prior to the fall. A transthoracic echocardiogram was obtained yesterday, which revealed an ejection fraction of 20% to 25%. The patient is awake this morning, reports adequate pain control. OBJECTIVE: VITAL SIGNS: His vital signs include blood pressure is 119/64, pulse is 77, respiratory rate is 14, temperature is 98 degrees Fahrenheit, and oxygen saturation 95% on 2 L by nasal cannula oxygen. HEART: Reveals regular rate and rhythm. LUNGS: Clear to auscultation bilaterally. Breathing, regular and unlabored. ABDOMEN: Soft, nontender, and nondistended. NEUROLOGIC: Reveals no focal deficits present. LABORATORY FINDINGS: Today includes a CBC with 14,400 white blood cells and hemoglobin and hematocrit remained stable at 10.4 and 33.9 respectively. Platelet count is 207,000. Metabolic profile; sodium is 138, potassium is 4.0, chloride is 109, bicarb is 16, BUN is 74, creatinine is 2.22 with a GFR of 36, glucose is 176, magnesium is 2.1 , and phosphorus is 3.7. PTT and INR noted at 35.3 seconds and 1.8 respectively. IMPRESSION: 1. Post injury day #1 status post ground level fall. 2. Closed left femoral neck fracture. 3. History of chronic congestive cardiomyopathy. 4. Eliquis-induced coagulopathy. 5. Chronic Kidney disease PLAN: Given this patient's current GFR, it is conceivable that the Eliquis would have cleared his system by tomorrow. We will withhold given fresh frozen plasma today in order not to exacerbate his chronic congestive heart failure. I discussed the above with Dr. Burns with Orthopedic Surgery, consideration will be given to operative intervention tomorrow. We will give the patient vitamin K today nevertheless and repeat the coagulation studies in the morning. Job ID: [id number] [facility]
[2019-09-22] MEDS: Insulin Regular 300 UNITS/3 ML VIAL SC PRN (16:05)
--- NOTE | 2019-09-22 17:02 | PRG ---
DATE OF SERVICE: 09/22/2019 HISTORY OF PRESENT ILLNESS: Mr. Dye is a 69-year-old male with left femoral neck fracture. The patient has multiple medical problems, being managed by trauma team, is noted to have an elevated INR this morning. The patient was given vitamin K by the trauma team to be put off until tomorrow, Sunday for his left hip hemiarthroplasty relying the INR to correct likely secondary to the patient's kidney disease as well as his liver disease as well as his use of Eliquis. The patient is a poor operative candidate given his multiple medical problems. The patient was functionally active in walking before this fall. I discussed with the patient's daughter as well as the risks and benefits of the surgery. I discussed it is complex problem given his multiple medical problems would recommend left hip hemiarthroplasty. He understands the risks and benefits. I would like to proceed in the morning. N.P.O. at midnight. He may still need fresh frozen plasma in the morning for correction. Job ID: [id number] [facility]
[2019-09-22] MEDS: Donepezil HCl 5 MG TAB PO SCH (21:00)
[2019-09-22] MEDS: Atorvastatin Calcium 40 MG TAB PO SCH (21:00)
[2019-09-22] MEDS: Ascorbic Acid 500 mg Chewable Tablet PO SCH (21:00)
--- NOTE | 2019-09-22 21:09 | EKG ---
Test Reason : PREOP Blood Pressure : / mmHG Vent. Rate : 075 BPM Atrial Rate : 075 BPM P-R Int : 000 ms QRS Dur : 106 ms QT Int : 400 ms P-R-T Axes : 000 044 216 degrees QTc Int : 446 ms Atrial fibrillation Low voltage QRS possible COPD pattern. Cannot rule out Anterior infarct (cited on or before 25-FEB-2019) Abnormal ECG When compared with ECG of 23-JUN-2019 16:23, Atrial fibrillation has replaced Junctional rhythm Questionable change in initial forces of Lateral leads Nonspecific T wave abnormality now evident in Inferior leads Confirmed by Tiffany MORSE ([id number]) on 09/22/2019 9:09:16 PM Referred By: BONIFACIO Confirmed By:Tiffany MORSE
[2019-09-23] MEDS: Albuterol Sulfate 2.5 mg/3 ml Neb NEB SCH ×5 (00:08→23:56)
[2019-09-23] MEDS: Acetaminophen 325 MG TAB PO SCH ×4 (00:26→17:12)
[2019-09-23] MEDS: Morphine 2 MG/ML SYRINGE SLOW IVP PRN ×3 (03:43→19:11)
--- NOTE | 2019-09-23 04:31 | PRG ---
DATE OF SERVICE: 09/23/2019 SUBJECTIVE: The patient remains on the surgical floor. He is status post ground level fall, in which he sustained a left femoral neck fracture. He is awaiting surgery for that. His surgery was delayed initially due to his Eliquis use and requiring cardiac clearance due to a significant CHF and coronary artery disease history. He has been cleared by Cardiology to proceed with surgery, though today it was noted that his INR was 1.8, and Ortho would prefer that it be 1.5 or lower. The patient is scheduled to receive vitamin K and will have fresh frozen plasma on standby if needed. OBJECTIVE: VITAL SIGNS: Stable. The patient is afebrile. GENERAL: The patient is resting comfortably in bed. I did not awaken him for an exam. He was resting comfortably and appeared in no distress. The nurses report no issues. ASSESSMENT AND PLAN: 1. Status post ground level fall. 2. Left femoral neck fracture, awaiting surgery. 3. History of cardiomyopathy, coronary artery bypass graft, congestive heart failure, chronic kidney disease, dementia, diabetes, and gastroesophageal reflux disease. 4. History of Eliquis use. PLAN: Plan will be to continue supportive care and await surgical decision tomorrow. We will repeat his labs in the morning. Job ID: [id number]
[2019-09-23 07:42] LABS: INR-International Normal Ratio 1.6; PTT 37.7 SEC (22.9-36.1); Prothrombin Time 19.2 sec (12.0-14.7)
[2019-09-23] MEDS: Carvedilol 6.25 MG TAB PO SCH ×2 (08:49→23:10)
[2019-09-23] MEDS: Ascorbic Acid 500 mg Chewable Tablet PO SCH (08:49)
[2019-09-23] MEDS: Amiodarone 200 MG TAB PO SCH (08:49)
[2019-09-23] MEDS: Famotidine 20 MG TAB PO SCH (08:49)
[2019-09-23] MEDS: Bumetanide 1 MG TAB PO SCH (08:49)
[2019-09-23] MEDS: Allopurinol 300 MG TAB PO SCH (08:49)
[2019-09-23] MEDS: Ferrous Sulfate 325 MG TAB PO SCH ×2 (08:49→17:11)
[2019-09-23] MEDS: Senokot S 8.6-50 MG TAB PO SCH (08:50)
[2019-09-23] MEDS: Polyethylene Glycol 3350 17 GM Packet PO SCH (08:50)
[2019-09-23] MEDS ORDERED: Levofloxacin 500 mg/D5W 100 ml Premix Bag ONE ×2 (09:17→09:18)
[2019-09-23] MEDS ORDERED: Fentanyl 100 MCG/2 ML VIAL ONE ×2 (10:38→12:56)
[2019-09-23] MEDS ORDERED: Albumin 5% 250 ML ONE (11:27)
[2019-09-23] MEDS ORDERED: Rocuronium Bromide 10 MG/ML (10ML VIAL) ONE (12:05)
[2019-09-23] MEDS ORDERED: Dexamethasone 20 MG/5 ML VIAL ONE (12:05)
[2019-09-23] MEDS ORDERED: Glycopyrrolate 0.2 MG/ML 5 ML SYRINGE ONE (12:05)
[2019-09-23] MEDS ORDERED: Ropivacaine 0.5% HCl/PF (150 MG/30 ML VIAL) ONE (12:05)
[2019-09-23] MEDS ORDERED: PHENYLEPHRINE-NS 100 MCG/ML 10 ML SYRINGE ONE (12:05)
[2019-09-23] MEDS ORDERED: EPHEDRINE 25 MG/5 ML SYRINGE ONE (12:05)
[2019-09-23] MEDS ORDERED: SUGAMMADEX SODIUM 200 MG/2 ML VIAL ONE (12:17)
[2019-09-23] MEDS ORDERED: SUGAMMADEX SODIUM 500 MG/5 ML VIAL ONE (12:17)
[2019-09-23] MEDS ORDERED: Promethazine HCl 25 MG/ML VIAL IM PRN (12:33)
[2019-09-23] MEDS ORDERED: Promethazine HCl 25 MG/ML VIAL SLOW IVP PRN (12:33)
[2019-09-23] MEDS ORDERED: Ondansetron HCl/PF 4 MG/2 ML Vial IVP PRN (12:33)
--- NOTE | 2019-09-23 19:36 | CT ---
Exam: Head CT without contrast HISTORY: Change in mental status. Patient fell a few days ago. Patient had surgery today. COMPARISON: 09/20/2019 FINDINGS: Hemorrhage: No intraparenchymal hemorrhage or extra-axial hematoma. Brain parenchyma: Cortical palencia-white matter differentiation is preserved. No mass effect or midline shift. Basilar cisterns are patent. Ventricular system: Ventricles and sulci are patent and symmetric. Calvarium: Intact. Sinuses and mastoid air cells: Adequate aeration. IMPRESSION: No acute intracranial process.
[2019-09-23 20:24] LABS: Mean Corpuscular HGB CONC 31.6 g/dL (32.0-36.0); Mean Corpuscular Hemoglobin 31.9 pg (27.0-31.0); Platelet Count 203 thou/uL (130-400); RBC Distribution Width 16.7 % (11.5-14.5); Red Blood Cell (RBC) Count 3.13 mill/uL (4.70-6.10); White Blood Cell (WBC) Count 12.2 thou/uL (4.8-10.8)
[2019-09-23 20:36] LABS: Anisocytosis SLIGHT = 6-15 cells (100X) (0-5/hpf); Band 1 % (5-11); Eosinophils 2 % (0-10); Lymphocytes 8 % (21-51); MDiff Complete? YES; Macrocytosis SLIGHT = 6-15 cells (100X) (0-5/hpf); Monocytes 7 % (0-10); Neutrophil 81 % (42-75); Ovalocytes SLIGHT = 2-5 cells (100X) (0-1/hpf); Platelet Morphology Comment Appears Adequate; Poikilocytosis SLIGHT = 6-15 cells (100X) (0-5/hpf); Polychromasia SLIGHT = 2-3 cells (100X) (0-2/hpf); Schistocytes SLIGHT = 2-5 cells (100X) (0-1/hpf)
[2019-09-23] MEDS: Acetaminophen 650 MG Suppository PR SCH (20:37)
[2019-09-23 20:42] LABS: Anion Gap 18 mmol/L (10-20); BUN (Urea Nitrogen) 70 mg/dL (8.4-25.7); Calc. Creatinine Clearance 39 mL/min (70-130); Calcium 8.8 mg/dL (7.8-10.44); Carbon Dioxide 16 mmol/L (23-31); Chloride 110 mmol/L (98-107); Estimated GFR-MDRD 38; Glucose 119 mg/dL (80-115); Magnesium 2.2 mg/dL (1.6-2.6); Phosphorus 3.6 mg/dL (2.3-4.7); Potassium 4.2 mmol/L (3.5-5.1); Sodium 140 mmol/L (136-145)
[2019-09-23] MEDS ORDERED: Lorazepam 2 MG/ML VIAL SLOW IVP SCH (21:00)
[2019-09-23] MEDS: Clindamycin/D5W 900 MG in Premix Bag 1 BAG IVPB SCH (21:30)
--- NOTE | 2019-09-23 22:10 | RAD ---
Exam: One view pelvis HISTORY: Status post arthroplasty. Postoperative exam. FINDINGS: Left knee arthroplasty is identified. Expected postoperative changes in the soft tissues. B ased on the single image, alignment appears to be near-anatomic IMPRESSION: Findings compatible with left hip arthroplasty.
--- NOTE | 2019-09-23 22:11 | RAD ---
Exam:Crosstable lateral left hip radiograph HISTORY: Left hip arthroplasty COMPARISON: None FINDINGS: Expected postoperative changes. Near anatomic alignment. IMPRESSION: Findings compatible with left hip arthroplasty.
--- NOTE | 2019-09-23 22:11 | RAD ---
Exam: Chest one view HISTORY:Left hip arthroplasty. Dobbhoff feeding tube placement Comparison: 09/20/2019 FINDINGS: Lines and tubes: Stable left-sided defibrillator. Dobbhoff tube is in the gastric cardia. Feeding tub e should be advanced. Cardiac silhouette:Cardiomegaly. Sternotomy wires. Aorta: Unremarkable Pulmonary vessels: Normal Costophrenic angles: Clear LUNGS: No masses or consolidation. Pneumothorax: None Osseous abnormalities: None IMPRESSION: Dobbhoff feeding tube in the gastric cardia. Feeding tube should be advanced.
--- NOTE | 2019-09-23 23:00 | RAD ---
Exam: Chest one view HISTORY:Dobbhoff feeding tube placement Comparison: 09/23/2019 FINDINGS: Dobbhoff tube has been advanced and is now likely in the gastric antrum. IMPRESSION: Dobbhoff feeding tube is likely in the gastric antrum. Continued advancement is recommend ed.
[2019-09-23] MEDS: Oxazepam 10 MG CAP PO SCH (23:09)
[2019-09-24 00:04] LABS: Bacteria/HPF None Seen HPF (None Seen); Bilirubin Negative (Negative); Blood, Urine 2+ (Negative); Clarity Turbid (Clear); Glucose, Urine (Dipstick) Normal (Negative); Leukocyte Negative Leu/uL (Negative); Nitrite Negative (Negative); Protein, Urine (Dipstick) 30 mg/dL (Neg-Trace); Squamous Epithelial None Seen HPF (0-3); WBC/HPF 0-3 HPF (0-3)
[2019-09-24 00:06] LABS: Urine Culture Reflex No No
[2019-09-24] MEDS: Ascorbic Acid 500 mg Chewable Tablet PO SCH ×3 (00:40→21:22)
[2019-09-24] MEDS: Atorvastatin Calcium 40 MG TAB PO SCH ×2 (00:40→21:22)
[2019-09-24] MEDS: Senokot S 8.6-50 MG TAB PO SCH ×3 (00:40→21:22)
[2019-09-24] MEDS: Donepezil HCl 5 MG TAB PO SCH ×2 (00:40→21:24)
[2019-09-24] MEDS: Allopurinol 300 MG TAB PO SCH ×3 (00:40→21:23)
--- NOTE | 2019-09-24 03:06 | PRG ---
DATE OF SERVICE: 09/23/2019 SUBJECTIVE: Trauma Team was contacted early this evening. Reported the patient had a decline in his GCS postoperatively. It had been several hours since he returned from PACU. However, his mentation was not back at baseline. Nursing also reported family concern for possible facial droop. A CT scan of his brain was completed at that time, which demonstrated no acute processes. Nursing again contacted about 1 hour later reported the patient's mentation was about the same. He was mildly tachycardic, febrile with a temperature of 102.5. The patient not able to take medications. He was also beginning to tremor. He has a known history of alcohol abuse, although his family reports that he has been sober for 40 years. They do not live with him. However, they come and check on him occasionally. The patient does have several comorbid conditions including ascites. Chest x-ray, EKG, labs were all completed this evening in addition to the CT scan of the brain. Workup demonstrated no additional findings. Dr. Jon was contacted as there was a concern for DTs and acute alcohol withdrawal. We did discuss the patient's results and came up with a plan. He received a Dobhoff. IV Ativan scheduled. Serax as well as multivitamins, thiamine, and folic acid. This seems to have appeared to improve his tremors significantly. He does have occasional tremors now. His fever has resolved with some rectal Tylenol. His tachycardia also improved. He is hemodynamically stable. Otherwise, there is no concern for airway compromise at this time. OBJECTIVE: VITAL SIGNS: Temperature 102.5, pulse 107, respirations 18, oxygen saturation 96% on 2 L nasal cannula, blood pressure 134/76. GENERAL: Elderly male, sitting up in bed. PULMONARY: Equal chest rise and fall. Clear breath sounds bilaterally. No signs of acute respiratory distress. CARDIAC: Tachycardic but regular rhythm. No murmurs, gallops, or rubs. GI: Abdomen is soft, nontender, nondistended. EXTREMITIES: 2+ pulses in all extremities. Gross motor and sensation intact. No significant swelling noted. NEURO: GCS is 11 that is eyes 4, verbal 2, and motor 5. This is a decline from preoperatively. The patient also has consistent tremors. He is still breathing spontaneously and appropriately. The tremors were reported to have started several hours postoperatively. ASSESSMENT: 1. Status post mechanical fall, on Eliquis. 2. Left femoral neck fracture, status post repair. 3. History of coronary artery disease. 4. Congestive heart failure. 5. Dementia. 6. Automated implantable cardioverter-defibrillator. 7. Diabetes. 8. Chronic kidney disease. 9. Cardiac stents. 10. Gastroesophageal reflux disease. 11. Atrial fibrillation. 12. Ascites. 13. Coronary artery bypass grafting. 14. Alcohol abuse. PLAN: The patient received 1 mg of IV Ativan this evening. Then, he was started on Serax through a Dobhoff scheduled q.8 hours. Thiamine, multivitamins, and folic acid were also started. Continue antibiotics per Orthopedic Surgery. Also started the patient on normal saline at 100 an hour as he is not taking p.o. right now. We will closely monitor fluid intake. Asked for the patient to not become volume overloaded. Tylenol to be given rectal. UA has been completed, which is negative. This patient was discussed with Dr. Jon before this dictation. We will contact him if he has any acute changes overnight. Job ID: [id number]
[2019-09-24] MEDS ORDERED: Sodium Chloride 0.9% 500 ML IV SCH (04:15)
[2019-09-24] MEDS: Acetaminophen 650 MG Suppository PR SCH ×4 (04:54→23:48)
[2019-09-24] MEDS: Sodium Chloride 0.9% 1,000 ML IV SCH ×2 (04:55→10:15)
[2019-09-24 05:01] LABS: Band 15 % (5-11); Hemoglobin 8.3 g/dL (14.0-18.0); Lymphocytes 8 % (21-51); MDiff Complete? YES; Mean Corpuscular HGB CONC 31.8 g/dL (32.0-36.0); Mean Corpuscular Hemoglobin 31.6 pg (27.0-31.0); Mean Corpuscular Volume 99.2 fL (78.0-98.0); Mean Platelet Volume 12.1 fL (7.4-10.4); Monocytes 11 % (0-10); Neutrophil 66 % (42-75); Platelet Count 169 thou/uL (130-400); Platelet Morphology Comment Appears Adequate; RBC Distribution Width 18.3 % (11.5-14.5); Red Blood Cell (RBC) Count 2.61 mill/uL (4.70-6.10)
[2019-09-24 05:06] LABS: Anion Gap 16 mmol/L (10-20); BUN (Urea Nitrogen) 77 mg/dL (8.4-25.7); Calc. Creatinine Clearance 30 mL/min (70-130); Calcium 8.6 mg/dL (7.8-10.44); Carbon Dioxide 21 mmol/L (23-31); Chloride 111 mmol/L (98-107); Estimated GFR-MDRD 28; Glucose 92 mg/dL (80-115); Magnesium 2.1 mg/dL (1.6-2.6); Phosphorus 3.5 mg/dL (2.3-4.7); Potassium 3.6 mmol/L (3.5-5.1); Sodium 144 mmol/L (136-145)
[2019-09-24] MEDS ORDERED: Hydrocortisone Sod Succ/PF 100 mg/2 ml Vial IVP SCH (05:30)
[2019-09-24] MEDS: Albuterol Sulfate 2.5 mg/3 ml Neb NEB SCH ×4 (07:01→23:38)
[2019-09-24] MEDS: Oxazepam 10 MG CAP PO SCH (07:23)
[2019-09-24] MEDS: Clindamycin/D5W 900 MG in Premix Bag 1 BAG IVPB SCH ×2 (07:26→14:58)
[2019-09-24 08:46] LABS: Actual Bicarbonate (HCO3a) 17.1 mEq/L (22-28); Base Excess (BEa) -6.7 mEq/L (-2.0 to +3.0); CO2 Tension 27.8 mmHg (35.0-45.0); Calcium, Ionized 1.11 mmol/L (1.12-1.30); Carboxyhemoglobin (COHb) 1.6 gm% (0.0-3.0); Hemoglobin (Hb) 7.9 g/dL (14.0-18.0); O2 Tension (PaO2), arterial 64.1 mmHg (> 80.0); Potassium - ABG Lab 3.92 mmol/L (3.70-5.30); pH, Arterial 7.41 (7.35-7.45)
[2019-09-24 08:48] LABS: Puncture Site RRA
[2019-09-24] MEDS ORDERED: Calcium Chloride 1 GM/10 ML Abboject SYRINGE IVP SCH (09:15)
[2019-09-24] MEDS: Sodium Bicarbonate 150 MEQ in Dextrose 5% in Water 1,000 ML IV SCH (09:26)
[2019-09-24] MEDS: Famotidine/PF 20 mg/2ml Vial SLOW IVP SCH (09:27)
[2019-09-24] MEDS: Polyethylene Glycol 3350 17 GM Packet PO SCH (09:28)
[2019-09-24] MEDS: Folic Acid 1 MG TAB PO SCH (09:28)
[2019-09-24] MEDS: Ferrous Sulfate 325 MG TAB PO SCH ×2 (09:29→15:33)
[2019-09-24] MEDS ORDERED: DOPamine 400 MG/D5W 250 ML 250 ML IVPB SCH (09:30)
--- NOTE | 2019-09-24 09:34 | OP ---
DATE OF PROCEDURE: 09/23/2019 PREOPERATIVE DIAGNOSIS: Left hip femoral neck fracture. POSTOPERATIVE DIAGNOSIS: Left hip femoral neck fracture. PROCEDURE PERFORMED: Left hip hemiarthroplasty. SIGN SHOP SUPERVISOR: Carlos Sheppard PA-C ANESTHESIOLOGIST: Dr. Downing. ANESTHESIA: The patient received a general endotracheal intubation and AMMY block. ESTIMATED BLOOD LOSS: 200 mL. IV FLUIDS: 400 of crystalloid, 250 mL of albumin. ANTIBIOTICS: Ancef 2 g. IMPLANTS: Jose Triathlon #6 Accolade II 130-degree stem, a 53 x 28 mm bipolar head and 28 x -4 femoral head. COMPLICATIONS: None. INDICATIONS FOR PROCEDURE: Mr. Dye is a 69-year-old male with history of end-stage renal disease, diabetes, congestive heart failure, and dementia, presents after a ground level fall, left hip fracture. Given the patient's dementia and comorbidities, I discussed with the family the risks and benefits of left hip hemiarthroplasty. I discussed risks to include pain, scar, bleeding, infection, damage to vital structures, decreased range of motion and strength, continued pain despite surgical intervention, loss of life or limb. I discussed the mortality associated with this fracture and performing hemiarthroplasty to diminish any potential complications or risks. He understood these risks and benefits and elected to proceed. DESCRIPTION OF PROCEDURE: Time-out was performed designating the left lower extremity as the operative site based on site, consents, and marking. After time-out, the patient's left lower extremity was prepped and draped in sterile fashion. A lateral skin incision was made down through skin and down to the IT band. The IT band was split into the gluteus medius and minimus. The tenotomy T'd the capsule, exposed the fracture. We placed our corkscrew and removed the femoral head. We sized to 53. We had made a femoral neck cut. We cleaned up the femoral neck cut, broached down starting at 1 going up to a size 6. I used a calcar planer. Removed the implant, re-seated the implant, placed a -4 and a bipolar component , reduced into place. Good overall alignment, shuck, and height. We were able to flex and extend everything and liked overall alignment and position. We then removed, dislocated, placed a size 6 stem with a -4 sleeve and 53 mm bipolar head reduced in place, washed and closed the T'd capsule with #1 Vicryl, closed the medius and minimus with #1 Vicryl, two or three through bone, small bone tunnels and then the rest of soft tissue, closed the IT band with #2 Stratafix, 0 Stratafix , 2-0 Stratafix and then glue for the skin. The patient will be weightbearing as tolerated. The patient will be followed by Medicine. The patient's outlook is guarded and he will receive 24 hours antibiotics. Job ID: [id number] [facility]
[2019-09-24] MEDS: Carvedilol 6.25 MG TAB PO SCH (09:40)
[2019-09-24] MEDS: Bumetanide 1 MG TAB PO SCH (09:40)
[2019-09-24] MEDS: Amiodarone 200 MG TAB PO SCH (09:40)
[2019-09-24] MEDS: Multivitamin W/ Minerals 1 TAB PO SCH (09:40)
--- NOTE | 2019-09-24 09:48 | RAD ---
Radiograph abdomen 2 views: 09/24/2019 9:05 AM HISTORY: 69-year-old male with abdominal pain. COMPARISON: Chest radiograph of 09/23/2019 10:55 PM FINDINGS: Dobbhoff feeding tube is again demonstrated in the region of the gastric antrum. There continues to b e prominent gas-filled loops of viscus, including stomach and adjacent prominent bowel loops, presumably colon. No pneumoperitoneum identified on the left hemidiaphragm. Right hemidiaphragm exclu ded from the [id number] on the upright image. No high-grade differential air-fluid levels. No interval change. IMPRESSION: No interval change..
[2019-09-24 12:27] LABS: Lactic Acid 1.8 mmol/L (0.5-2.2)
--- NOTE | 2019-09-24 12:27 | PQF ---
CLINICAL DOCUMENTATION IMPROVEMENT CLARIFICATION FORM: ICD-10 Updated PLEASE DO AN ADDENDUM TO THE PROGRESS NOTE WITH ANY DOCUMENTATION UPDATES OR ADDITIONS AND CARRY THROUGH TO DC SUMMARY. THANK YOU. DATE: 09/24/2019 ATTN: Dr. Jon Please exercise your independent, professional judgment in responding to the clarification form. Clinical indicators are provided on the bottom of this form for your review Please check appropriate box(s): HEART FAILURE: A. TYPE [ ] Systolic / HFrEF [ ] Diastolic / HFpEF [x ] Combined Systolic / Diastolic [ ] Other diagnosis [ ] Unable to determine In addition, please specify: Present on Admission (POA): [ x] Yes [ ] No [ ] Unable to determine For continuity of documentation, please document condition throughout progress notes and discharge summary. Thank You. CLINICAL INDICATORS - SIGNS / SYMPTOMS / LABS / RESULTS AND LOCATION IN EMR H&P 09/19: Lab: BNP 844 It is noted in review of his past labs that he has chronically elevated troponin and BNP 09/20 (Maddy) Echocardiogram revealed severe decrease left ventricular ejection fraction 20% to 25% with a dilated left ventricle. Impression: Cardiomyopathy He is not in active congestive heart failure. 09/22 (Dulce) Congestive heart failure. RISKS: H&P 09/19: PMH: DM, CAD, CHF, A fib, COPD, CKD. AICD placement, 3V CABG surgery. 09/20 (Katy) Left femoral neck fracture. 09/20 (Maddy) hx of progressive ischemic cardiomyopathy. TREATMENT: Cardiology Consult 09/19 MAR: Order 09/20: Bumex 0.5 mg po daily HERBERT: Order 09/20: Coreg 6.25 mg po BID 09/21 (Danay) We will withhold given FFP today in order not to exacerbate his chronic congestive heart failure. Thank you, Alexa (This form is maintained as a part of the permanent medical record) 2014 [employer] All Rights Reserved Alexa Arnett RN, BSN [email or web address]
--- NOTE | 2019-09-24 13:41 | PQF ---
CLINICAL DOCUMENTATION IMPROVEMENT CLARIFICATION FORM: ICD-10 Updated PLEASE DO AN ADDENDUM TO THE PROGRESS NOTE WITH ANY DOCUMENTATION UPDATES OR ADDITIONS AND CARRY THROUGH TO DC SUMMARY. THANK YOU. DATE: 09/24/2019 ATTN: Dr. Jon Please exercise your independent, professional judgment in responding to the clarification form. Clinical indicators are provided on the bottom of this form for your review Please check appropriate box(s): [ x ] Acute on Chronic Renal Failure please specify Stage of CKD (see below) [ ] CKD without ARF/GLORIA please specify Stage of CKD [ ] Other diagnosis [ ] Unable to determine In addition, please specify: Present on Admission (POA): [x ] Yes [ ] No [ ] Unable to determine For continuity of documentation, please document condition throughout progress notes and discharge summary. Thank You. CLINICAL INDICATORS - SIGNS / SYMPTOMS / LABS / RESULTS AND LOCATION IN MR H&P 09/19: Lab: Creatinine 2.70 09/20 09/22 09/23 LAB: Creatinine 2.35 2.09 2.73 Estimated GFR 34 38 28 09/21 (Danay) creatinine is 2.22 with a GFR 36 09/22 (Dulce) Left femoral neck fracture, s/p repair Chronic kidney disease. RISKS: H&P 09/19: PMH: DM, CAD, CHF, A fib, COPD, CKD. 09/22 (Brazeal) Left hip hemiarthroplasty TREATMENT: Lab Order for BMP: 09/20, 09/21, 09/22, 09/23 National Kidney [employer] Guidelines for CKD Staging Stage I Kidney damage with normal or increased GFR GFR > 90 Stage II Kidney damage with mildly decreased GFR GFR 60-89 Stage III Kidney damage with moderately decreased GFR GFR 30-59 Stage IV Kidney damage with severely decreased GFR GFR 16-29 Stage V Kidney failure GFR<15 ESRD End Stage Renal Disease On dialysis Acute Renal Failure/Acute Kidney Failure defined as: Increases in SCr by (>) 0.3 mg/dl within 48 hours OR- Increases in SCr by (>) 1.5 times baseline, known or presumed to have occurred within the prior 7 days OR- Urine volume < 0.5 ml/kg/hour for 6 hours (KDIGO supplement 2012 for RIFLE/JENNIFER criteria) Thank you, Alexa (This form is maintained as a part of the permanent medical record) 2014 [employer]. All Rights Reserved Alexa Arnett RN, BSN [email or web address] [facility]
[2019-09-24] MEDS ORDERED: Carvedilol 6.25 MG TAB PO SCH ×2 (14:15→21:00)
[2019-09-24] MEDS ORDERED: Furosemide 40 MG/4 ML VIAL SLOW IVP SCH ×2 (15:30→21:00)
[2019-09-24] MEDS ORDERED: Digoxin 0.5 MG/2 ML AMP SLOW IVP SCH (16:00)
--- NOTE | 2019-09-24 16:18 | PRG ---
DATE OF SERVICE: 09/24/2019 SUBJECTIVE: Mr. Dye is a 69-year-old man who is post injury day #3 status post ground-level fall, suffering a closed left femoral neck fracture. He is postoperative day #1 status post left hip hemiarthroplasty. Overnight, the patient developed hypotension, altered mental status, and decrease in urinary output. Due to prior history of chronic alcoholism, delirium tremens was suspected. This morning, the patient is evaluated. His low blood pressure failed to resolve with fluid boluses. The patient is somewhat somnolent; however, awakens to the voice and follows commands. His daughter is at bedside. OBJECTIVE: VITAL SIGNS: This morning included blood pressure 86/54, pulse is 72 to 108 and irregular, respiratory rate is 25, maximum temperature within the last 24 hours is noted at 102.5 degrees Fahrenheit and most current temperature is 99.3 degrees Fahrenheit. HEENT: Pupils equally round and reactive to light bilaterally. NECK: He has no jugular venous distention noted. HEART: Irregular rate and irregular rhythm. LUNGS: Scattered rhonchi. Breathing regular and nonlabored. ABDOMEN: Soft and distended with gas, but nontender to palpation. Liver and spleen nonpalpable below costal margin. EXTREMITIES: 2+ radial and pedal pulses bilaterally. No ankle edema is present. NEUROLOGIC: No focal deficits present. LABORATORY FINDINGS: Today includes a CBC with 16,000 white blood cells, hemoglobin and hematocrit 8.3 and 25.9 respectively, and platelet count is 169,000. Metabolic profile: Sodium 144, potassium 3.6, chloride is 111, bicarb is 21, BUN is 77, and creatinine is 2.73, this is in contrast to BUN and creatinine of 70 and 2.09 yesterday. Glucose is 92. Magnesium is 2.1. Phosphorus is 3.5. Serum cortisol level noted at 29.20. BNP 1691.1. IMPRESSIONS: 1. Postinjury day #16, status post ground-level fall. 2. Left femoral neck fracture. 3. Acute congestive heart failure exacerbation. 4. Gifhp-bs-hzmqrsi renal failure. PLAN: 1. The patient will be admitted to intermediate care unit for better hemodynamic monitoring. 2. We will initiate gentle diuresis and minimize total fluid intake. 3. The patient will be started on low-dose inotropic support. Above findings and plan has been discussed with the patient and adult daughter at bedside, who indicates understanding information given. I have answered her questions. Job ID: [id number]
--- NOTE | 2019-09-24 18:47 | RAD ---
Exam: Chest one view HISTORY:Central line placement Comparison: 09/23/2019 FINDINGS: Cardiac silhouette:Cardiomegaly. Stable sternotomy wires. Stable left-sided defibrillator. Aorta: Atherosclerosis Pulmonary vessels: Normal Costophrenic angles: Clear LUNGS: There are interval reticulonodular opacities. Lines and tubes: Dobbhoff feeding tube is redemonstrated. Left Pneumothorax: None Osseous abnormalities: None IMPRESSION: 1. Right-sided vascular catheter. No pneumothorax. Blunted. Cardiomegaly. 3. Patchy interstitial reticulonodular opacities. Correlate for edema.
[2019-09-24] MEDS: Apixaban 5 MG TAB PO SCH (21:23)
[2019-09-24] MEDS: Carvedilol 3.125 MG TAB PO SCH (21:33)
--- NOTE | 2019-09-24 22:11 | EKG ---
Test Reason : STAT Blood Pressure : / mmHG Vent. Rate : 107 BPM Atrial Rate : 071 BPM P-R Int : 000 ms QRS Dur : 110 ms QT Int : 354 ms P-R-T Axes : 000 066 264 degrees QTc Int : 472 ms Accelerated Junctional rhythm Low voltage QRS Nonspecific T wave abnormality Abnormal ECG When compared with ECG of 21-SEP-2019 23:34, Junctional rhythm has replaced Atrial fibrillation Confirmed by Tiffany MORSE ([id number]) on 09/24/2019 10:11:11 PM Referred By: DELORES WHITT Confirmed By:Tiffany MORSE
--- NOTE | 2019-09-24 23:27 | PRG ---
DATE OF SERVICE: 09/24/2019 SUBJECTIVE: The patient was seen this evening during rounds. He was lying in bed with no signs of acute distress. Mentation is unchanged. The patient does follow commands intermittently but is not voicing words. He moans occasionally. Nursing reported the patient received Lasix earlier today and is scheduled to receive Lasix again this evening. Tube feeds have been started through the Dobhoff. Total fluid in at 75 an hour. OBJECTIVE: VITAL SIGNS: Temperature 99.3, pulse 102, respirations 26, oxygen saturation 100% on 2 L nasal cannula, blood pressure 113/58. GENERAL: Elderly male, sitting up in bed with no signs of acute distress. PULMONARY: Equal chest rise and fall. Clear breath sounds bilaterally. No signs of acute respiratory distress. CARDIAC: Tachycardic, but regular rhythm. No murmurs, gallops, or rubs. GI: Abdomen is soft and nontender. EXTREMITIES: 2+ pulses in all extremities. Gross motor and sensation intact. No significant swelling noted. NEUROLOGICAL: GCS is eyes 4, verbal 2, motor 5-6, which equals 11-12. ASSESSMENT: 1. Status post ground-level fall, on Eliquis. 2. Left femoral neck fracture, status post repair. 3. Acute congestive heart failure exacerbation, stable. 4. Frurz-kc-qgldjwi renal failure. PLAN: Continue tube feeds at 20 an hour. Continue total fluid in at 75 an hour. Maintenance fluids to be a bicarb drip. The patient to receive Lasix IV this evening. We will monitor his urinary output hourly. Continue the patient on a dopamine drip. The patient to restart his Entresto tonight. Job ID: [id number]
[2019-09-24] MEDS: Digoxin 0.5 MG/2 ML AMP SLOW IVP SCH (23:48)
[2019-09-25] MEDS: DOPamine 400 MG/D5W 250 ML 250 ML IVPB SCH ×2 (00:55→17:20)
--- NOTE | 2019-09-25 01:26 | OP ---
DATE OF PROCEDURE: 09/24/2019 PREOPERATIVE DIAGNOSES: 1. Acute on chronic renal failure. 2. Acute congestive heart failure exacerbation. POSTOPERATIVE DIAGNOSES: 1. Acute on chronic renal failure. 2. Acute congestive heart failure exacerbation. PROCEDURE PERFORMED: Placement of right subclavian triple-lumen central venous catheter. INDICATIONS FOR PROCEDURE: A 69-year-old man, with history of chronic congestive heart failure and chronic kidney disease. Patient was admitted four days previously following a ground level fall, where he sustained a hip fracture. He underwent hemiarthroplasty and postoperatively, developed hypotension associated with worsening renal function. Clinical radiographic examination was consistent with acute CHF exacerbation as well as acute on chronic renal failure. Decision was made to place a central venous access for hemodynamic monitoring and to facilitate inotropic support. DESCRIPTION OF PROCEDURE: Informed consent was obtained from the patient's daughter, who is his power of securities attorney. Patient was placed in supine position. Right chest wall was sterilely prepped and draped in usual fashion. Skin below the right clavicle was anesthetized with 1% lidocaine. Right subclavian vein was cannulated with an 18-gauge introducer needle returning dark venous blood. Guidewire was passed through the needle and advanced into the right subclavian vein without resistance. Needle was withdrawn over the guidewire. A stab incision was made adjacent to the guidewire using 11 scalpel. Dilator was passed over the guidewire dilating the subcutaneous tissues. Dilator was removed and a triple-lumen central venous catheter was advanced over the guidewire and placed in the right subclavian vein without resistance stopping at the 15 cm kaylie. Guidewire was removed. Dark venous blood was aspirated from all 3 ports, which were individually flushed with saline. The catheter was secured to anterior chest wall using 3-0 silk suture at two points. Sterile dressings were applied. Patient tolerated the procedure without any apparent complications. Chest x-ray confirmed proper placement and no pneumothorax present. Job ID: [id number]
[2019-09-25 04:49] LABS: Band 5 % (5-11); Hypochromia SLIGHT = 6-15 cells (100X) (0-5/hpf); Lymphocytes 3 % (21-51); MDiff Complete? YES; Mean Corpuscular HGB CONC 32.4 g/dL (32.0-36.0); Mean Corpuscular Volume 98.8 fL (78.0-98.0); Mean Platelet Volume 8.3 fL (7.4-10.4); Metamyelocyte 1 % (0-0); Monocytes 7 % (0-10); Neutrophil 84 % (42-75); Platelet Count 132 thou/uL (130-400); Platelet Morphology Comment Appears Adequate; RBC Distribution Width 17.6 % (11.5-14.5); Red Blood Cell (RBC) Count 2.51 mill/uL (4.70-6.10); White Blood Cell (WBC) Count 15.4 thou/uL (4.8-10.8)
[2019-09-25 05:03] LABS: Digoxin 1.53 ng/mL (0.8-2.0)
[2019-09-25 05:07] LABS: Anion Gap 14 mmol/L (10-20); BUN (Urea Nitrogen) 85 mg/dL (8.4-25.7); Calc. Creatinine Clearance 31 mL/min (70-130); Calcium 8.6 mg/dL (7.8-10.44); Carbon Dioxide 21 mmol/L (23-31); Chloride 112 mmol/L (98-107); Estimated GFR-MDRD 29; Glucose 160 mg/dL (80-115); Magnesium 2.1 mg/dL (1.6-2.6); Phosphorus 4.3 mg/dL (2.3-4.7); Potassium 4.1 mmol/L (3.5-5.1); Sodium 143 mmol/L (136-145)
[2019-09-25] MEDS: Acetaminophen 650 MG Suppository PR SCH ×2 (06:34→14:06)
[2019-09-25] MEDS: Albuterol Sulfate 2.5 mg/3 ml Neb NEB SCH ×3 (07:30→18:47)
[2019-09-25] MEDS: Digoxin 0.5 MG/2 ML AMP SLOW IVP SCH (08:55)
[2019-09-25] MEDS: Ferrous Sulfate 325 MG TAB PO SCH ×2 (08:56→17:08)
[2019-09-25] MEDS: Amiodarone 200 MG TAB PO SCH (08:57)
[2019-09-25] MEDS: Bumetanide 1 MG TAB PO SCH (08:58)
[2019-09-25] MEDS: Apixaban 5 MG TAB PO SCH ×2 (08:58→20:59)
[2019-09-25] MEDS: Ascorbic Acid 500 mg Chewable Tablet PO SCH ×2 (08:58→20:59)
[2019-09-25] MEDS: Multivitamin W/ Minerals 1 TAB PO SCH (08:59)
[2019-09-25] MEDS: Polyethylene Glycol 3350 17 GM Packet PO SCH ×2 (08:59→09:13)
[2019-09-25] MEDS: Famotidine/PF 20 mg/2ml Vial SLOW IVP SCH (08:59)
[2019-09-25] MEDS: Folic Acid 1 MG TAB PO SCH (08:59)
[2019-09-25] MEDS: Senokot S 8.6-50 MG TAB PO SCH ×2 (09:00→21:02)
[2019-09-25] MEDS: Allopurinol 300 MG TAB PO SCH ×2 (09:06→20:59)
[2019-09-25] MEDS: Carvedilol 3.125 MG TAB PO SCH ×2 (09:14→21:01)
[2019-09-25] MEDS: traMADol HCl 50 MG TAB PO PRN (09:26)
[2019-09-25] MEDS ORDERED: Albumin 25% 25 GM/100 ML BOT IVPB ONE (10:15)
[2019-09-25 10:28] LABS: Actual Bicarbonate (HCO3a) 20.5 mEq/L (22-28); Base Excess (BEa) -3.4 mEq/L (-2.0 to +3.0); CO2 Tension 31.8 mmHg (35.0-45.0); Calcium, Ionized 1.18 mmol/L (1.12-1.30); Carboxyhemoglobin (COHb) 1.6 gm% (0.0-3.0); Hemoglobin (Hb) 7.9 g/dL (14.0-18.0); O2 Tension (PaO2), arterial 63.7 mmHg (> 80.0); Potassium - ABG Lab 3.84 mmol/L (3.70-5.30); pH, Arterial 7.43 (7.35-7.45)
[2019-09-25 10:36] LABS: Puncture Site RR
[2019-09-25] MEDS: Insulin Regular 300 UNITS/3 ML VIAL SC PRN (14:01)
[2019-09-25] MEDS: Acetaminophen 325 MG TAB PO SCH (17:08)
--- NOTE | 2019-09-25 18:50 | PRG ---
DATE OF SERVICE: 09/25/2019 SUBJECTIVE: Mr. Dye is a 69-year-old man, who is post injury day #4, status post ground level fall where he suffered a closed left femoral neck fracture. The patient is postoperative day #2, status post left hip hemiarthroplasty. He was transferred to the intermediate care unit yesterday for hypotension and low urinary output. Resuscitation has been in effect since yesterday. The patient is currently on dopamine at 5 mcg/kg/minute. He is more awake and alert today. His urinary output is improving. He moves all extremities and follows commands. Daughter is at bedside and is pleased with her father's improvement. OBJECTIVE: VITAL SIGNS: Currently include blood pressure 92/49, pulse is 92 and irregular, respiratory rate is 11, maximum temperature in last 24 hours is 99.3 degrees Fahrenheit, oxygen saturation is 97% on 2 L by nasal cannula oxygen. HEENT: Pupils are equal, round, reactive to light bilaterally. NECK: He has no jugular venous distention noted. HEART: Irregular rate and irregular rhythm. LUNGS: Reveals scattered rhonchi. Breathing regular and nonlabored. ABDOMEN: Soft, nontender, nondistended. NEUROLOGIC: No focal deficits present. LABORATORY DATA: Today include a CBC with 15,400 white blood cells, hemoglobin and hematocrit 8.0 and 24.8 respectively. The platelet count is 132,000. Please note that admitting hemoglobin was 10.4 with hematocrit of 32.9, this was on 09/21/2019. Metabolic profile: Sodium 143, potassium 4.1, chloride is 112, bicarb is 21, BUN 85, creatinine is 2.66, glucose is 160, magnesium is 2.1, and phosphorus is 4.3. BUN and creatinine yesterday were 77 and 2.73 respectively. BNP is 1447.4 in contrast to 1691.1 yesterday. IMPRESSIONS: 1. Postoperative day #2, status post left hip hemiarthroplasty. 2. Acute congestive heart failure exacerbation, improving. 3. Acute on chronic kidney failure, improving. 4. Acute blood loss anemia. PLAN: 1. The patient will be transfused with 1 unit of packed red blood cells to improve his oxygen carrying capacity. 2. We will maintain dopamine at 5 mcg/kg/minute and wean orally to mean arterial pressure of 65 or better. 3. Initiate physical and occupational therapy. 4. We will ask Speech and Language pathologist to evaluate the patient for swallow function. 5. Above findings and plan discussed with the patient and his daughter at bedside, who indicates understanding of information given. I have answered her questions. Job ID: [id number]
[2019-09-25] MEDS: Sodium Bicarbonate 150 MEQ in Dextrose 5% in Water 1,000 ML IV SCH (20:46)
[2019-09-25] MEDS: Atorvastatin Calcium 40 MG TAB PO SCH (20:59)
[2019-09-25] MEDS: Donepezil HCl 5 MG TAB PO SCH (21:01)
[2019-09-26] MEDS: Albuterol Sulfate 2.5 mg/3 ml Neb NEB SCH ×4 (00:19→18:55)
[2019-09-26] MEDS: Acetaminophen 325 MG TAB PO SCH ×3 (02:08→11:40)
--- NOTE | 2019-09-26 02:30 | PRG ---
DATE OF SERVICE: 09/25/2019 SUBJECTIVE: The patient was seen this evening during rounds. He was lying in bed. The patient continues to have altered mental status. Earlier this evening, CVP was slightly lower at 4. Urinary output had dropped off and the patient was not meeting his map goal of 65. He subsequently received 12.5 g of 5% albumin and his map and CVP improved. OBJECTIVE: VITAL SIGNS: Temperature 99.6, pulse 87, respirations 29, oxygen saturation 95% on room air, and blood pressure 103/50. GENERAL: Elderly male, lying in bed with no signs of acute pulmonary distress. PULMONARY: Equal chest rise and fall. Clear breath sounds bilaterally. No signs of acute respiratory distress. CARDIAC: Regular rate and rhythm with a midsystolic murmur. EXTREMITIES: 2+ pulses in all extremities. Gross motor and sensation intact. He does have some mild edema to all 4 of his extremities. Coreas has yellow to dark urine in bag. ASSESSMENT: 1. Status post ground level fall, on Eliquis. 2. Right femoral neck fracture, status post repair. 3. Acute congestive heart failure exacerbation, stable. 4. Qpuwl-ag-fswdtlh kidney failure, stable. 5. Acute blood loss anemia. PLAN: Continue current bicarb drip. Continue dopamine at 5. Continue total fluid in at 5 mL an hour. Continue monitor urinary output, vital signs, and CVP closely. Map goal of 65 or better. Job ID: [id number]
[2019-09-26 04:17] LABS: Anion Gap 14 mmol/L (10-20); BUN (Urea Nitrogen) 96 mg/dL (8.4-25.7); Band 2 % (5-11); Burr Cells SLIGHT = 2-5 cells (100X) (0-1/hpf); Calc. Creatinine Clearance 28 mL/min (70-130); Calcium 8.7 mg/dL (7.8-10.44); Carbon Dioxide 23 mmol/L (23-31); Chloride 110 mmol/L (98-107); Estimated GFR-MDRD 26; Glucose 167 mg/dL (80-115); Hemoglobin 8.7 g/dL (14.0-18.0); Lymphocytes 5 % (21-51); MDiff Complete? YES; Magnesium 2.2 mg/dL (1.6-2.6); Mean Corpuscular HGB CONC 31.6 g/dL (32.0-36.0); Mean Platelet Volume 7.4 fL (7.4-10.4); Monocytes 11 % (0-10); Neutrophil 82 % (42-75); Phosphorus 4.1 mg/dL (2.3-4.7); Platelet Count 128 thou/uL (130-400); Potassium 3.5 mmol/L (3.5-5.1); RBC Distribution Width 17.2 % (11.5-14.5); Red Blood Cell (RBC) Count 2.82 mill/uL (4.70-6.10); Schistocytes SLIGHT = 2-5 cells (100X) (0-1/hpf); Sodium 143 mmol/L (136-145); White Blood Cell (WBC) Count 15.5 thou/uL (4.8-10.8)
[2019-09-26] MEDS: Insulin Regular 300 UNITS/3 ML VIAL SC PRN ×2 (06:38→12:28)
[2019-09-26] MEDS ORDERED: Potassium Chloride 20 MEQ TAB PO SCH (09:15)
[2019-09-26] MEDS ORDERED: Furosemide 40 MG/4 ML VIAL ONE (09:42)
[2019-09-26] MEDS ORDERED: Furosemide 40 MG/4 ML VIAL SLOW IVP SCH ×2 (09:45→18:45)
[2019-09-26] MEDS ORDERED: Digoxin 0.5 MG/2 ML AMP SLOW IVP SCH (09:45)
[2019-09-26] MEDS: traMADol HCl 50 MG TAB PO PRN (09:45)
[2019-09-26] MEDS: Allopurinol 300 MG TAB PO SCH ×2 (09:47→20:34)
[2019-09-26] MEDS: Amiodarone 200 MG TAB PO SCH (09:47)
[2019-09-26] MEDS: Ferrous Sulfate 325 MG TAB PO SCH ×2 (09:47→16:20)
[2019-09-26] MEDS: Apixaban 5 MG TAB PO SCH ×2 (09:47→20:34)
[2019-09-26] MEDS: Ascorbic Acid 500 mg Chewable Tablet PO SCH ×2 (09:48→20:33)
[2019-09-26] MEDS: Folic Acid 1 MG TAB PO SCH (09:49)
[2019-09-26] MEDS: Famotidine 20 MG TAB PO SCH (09:49)
[2019-09-26] MEDS: Carvedilol 3.125 MG TAB PO SCH ×2 (09:49→23:59)
[2019-09-26] MEDS: Senokot S 8.6-50 MG TAB PO SCH ×2 (09:50→20:33)
[2019-09-26] MEDS: Multivitamin W/ Minerals 1 TAB PO SCH (09:50)
[2019-09-26] MEDS: Polyethylene Glycol 3350 17 GM Packet PO SCH (09:50)
[2019-09-26] MEDS: Bumetanide 1 MG TAB PO SCH (09:59)
[2019-09-26] MEDS ORDERED: Acetaminophen 325 MG TAB PO SCH (14:00)
--- NOTE | 2019-09-26 14:01 | PRG ---
DATE OF SERVICE: 09/26/2019 SUBJECTIVE: Mr. Dye is a 69-year-old man, post injury day #5, status post ground level fall with closed left femoral neck fracture. He is postop day #3, status post left hip hemiarthroplasty. He developed hypotension postoperatively associated with low urinary output and worsening renal function. Currently, the patient is on dopamine at 5 mcg/kg per minute. He did receive 1 unit of packed red blood cells yesterday. Urinary output is adequate for the patient's weight at 0.5 mL/kg/hour. He is tolerating tube feeds at 20 mL/hour. He has not had any bowel movement in the last 48 hours. OBJECTIVE: VITAL SIGNS: Current vital signs include blood pressure 97/45, pulse is 86 and irregular, respiratory rate is 26, maximum temperature in last 24 hours is 99.3 degrees Fahrenheit, and oxygen saturation is 94% on 2 L by nasal cannula oxygen, CVP is between 8 and 10. HEENT: He has no jugular venous distention noted. HEART: Reveals irregular rate and irregular rhythm. LUNGS: Reveal scattered rhonchi. Breathing, regular and nonlabored. ABDOMEN: Soft, nontender, and nondistended. NEUROLOGIC: Reveals no focal deficits present. Overall, the patient is more alert today. He failed a swallow function test per Speech Pathology yesterday. LABORATORY FINDINGS: Today include a CBC with 15,500 white blood cells, hemoglobin and hematocrit 8.7 and 27.6 respectively. Platelet count is 128,000. Metabolic profile; sodium 143, potassium 3.5, chloride is 110, bicarb is 23, BUN is 96, creatinine is 2.97 up from 2.66 yesterday. Glucose is 167, magnesium 2.2, and phosphorus is 4.1. BNP is 1328.8 today. This is in contrast to 1447.4, 1691.1 yesterday and day before yesterday respectively. IMPRESSION: 1. Postoperative day #3, status post left hemiarthroplasty. 2. Acute congestive heart failure exacerbation. 3. Acute on chronic kidney failure. 4. Acute hypokalemia. PLAN: 1. Correct abnormal electrolytes. 2. We will initiate inotropic support using dobutamine, starting dose at 5 mcg/kg/minute. We will monitor the patient's urinary output, mean arterial pressure, and mental status as endpoint of our resuscitation. 3. We will continue with serial laboratory examinations evaluating the renal function. Job ID: [id number]
[2019-09-26] MEDS: DOBUTamine 500 mg/250 ml 250 ML IVPB SCH (14:09)
[2019-09-26] MEDS ORDERED: Albumin 25% 25 GM/100 ML BOT IVPB SCH (18:26)
[2019-09-26] MEDS: Acetaminophen 500 MG TAB PO SCH (20:33)
[2019-09-26] MEDS: Atorvastatin Calcium 40 MG TAB PO SCH (20:33)
[2019-09-26] MEDS: Donepezil HCl 5 MG TAB PO SCH (20:34)
[2019-09-27] MEDS: Albuterol Sulfate 2.5 mg/3 ml Neb NEB SCH ×4 (00:50→18:54)
[2019-09-27] MEDS: Acetaminophen 500 MG TAB PO SCH ×4 (01:41→20:45)
[2019-09-27] MEDS: DOPamine 400 MG/D5W 250 ML 250 ML IVPB SCH ×2 (01:42→17:02)
--- NOTE | 2019-09-27 02:32 | PRG ---
DATE OF SERVICE: 09/26/2019 SUBJECTIVE: Patient was seen this evening during rounds. He was lying in bed with no signs of acute distress. Nursing reports he is meeting his MAP goals and urinary output. He is currently on dopamine and dobutamine both at 5 mcg consistently. Total fluids in at 100 an hour, tube feeds having been advanced to a goal of 40 an hour. Mentation remains the same. OBJECTIVE: VITAL SIGNS: Temperature 97.3, pulse 88, respirations 30, oxygen saturation 94% on room air, blood pressure 105/45. GENERAL: Elderly male, lying in bed with no signs of acute distress. PULMONARY: Equal chest rise and fall. No signs of acute respiratory distress. ASSESSMENT: 1. Status post ground level fall, on Eliquis. 2. Left femoral neck fracture, status post repair. 3. Acute congestive heart failure exacerbation, persistent. 4. Acute on chronic kidney failure, persistent. PLAN: Continue dopamine and dobutamine. Continue digoxin. Continue to closely monitor the patient's MAP and urinary output. Tube feeds are now at goal. Job ID: [id number]
[2019-09-27 04:36] LABS: Anion Gap 14 mmol/L (10-20); BUN (Urea Nitrogen) 111 mg/dL (8.4-25.7); Calc. Creatinine Clearance 27 mL/min (70-130); Calcium 8.5 mg/dL (7.8-10.44); Carbon Dioxide 23 mmol/L (23-31); Chloride 108 mmol/L (98-107); Estimated GFR-MDRD 25; Glucose 217 mg/dL (80-115); Magnesium 2.2 mg/dL (1.6-2.6); Phosphorus 3.9 mg/dL (2.3-4.7); Potassium 3.2 mmol/L (3.5-5.1); Sodium 142 mmol/L (136-145)
[2019-09-27 06:04] LABS: Anisocytosis MODERATE=16-30 cells (100X) (0-5/hpf); Band 3 % (5-11); Hemoglobin 7.4 g/dL (14.0-18.0); Lymphocytes 1 % (21-51); MDiff Complete? YES; Mean Corpuscular HGB CONC 31.4 g/dL (32.0-36.0); Mean Corpuscular Hemoglobin 30.1 pg (27.0-31.0); Mean Corpuscular Volume 95.7 fL (78.0-98.0); Mean Platelet Volume 8.6 fL (7.4-10.4); Monocytes 4 % (0-10); Neutrophil 92 % (42-75); Platelet Count 128 thou/uL (130-400); RBC Distribution Width 19.4 % (11.5-14.5); Red Blood Cell (RBC) Count 2.46 mill/uL (4.70-6.10); Schistocytes SLIGHT = 2-5 cells (100X) (0-1/hpf)
[2019-09-27] MEDS: Insulin Regular 300 UNITS/3 ML VIAL SC PRN ×3 (06:38→19:10)
[2019-09-27] MEDS ORDERED: Potassium Chloride 40 MEQ in Sodium Chloride 0.9% 250 ML 200 ML IVPB SCH (09:30)
[2019-09-27] MEDS: Bisacodyl 10 MG SUPP PR SCH (09:58)
[2019-09-27] MEDS: Carvedilol 3.125 MG TAB PO SCH ×3 (09:58→20:46)
[2019-09-27] MEDS: Ferrous Sulfate 325 MG TAB PO SCH ×2 (10:10→18:28)
[2019-09-27] MEDS: Amiodarone 200 MG TAB PO SCH (10:11)
[2019-09-27] MEDS: DOBUTamine 500 mg/250 ml 250 ML IVPB SCH (10:11)
[2019-09-27] MEDS: Apixaban 5 MG TAB PO SCH ×2 (10:11→20:45)
[2019-09-27] MEDS: Allopurinol 300 MG TAB PO SCH (10:11)
[2019-09-27] MEDS: Ascorbic Acid 500 mg Chewable Tablet PO SCH ×2 (10:11→20:45)
[2019-09-27] MEDS: Famotidine 20 MG TAB PO SCH (10:13)
[2019-09-27] MEDS: Bumetanide 1 MG TAB PO SCH (10:13)
[2019-09-27] MEDS: Folic Acid 1 MG TAB PO SCH (10:14)
[2019-09-27] MEDS: Polyethylene Glycol 3350 17 GM Packet PO SCH (10:15)
[2019-09-27] MEDS: Multivitamin W/ Minerals 1 TAB PO SCH (10:15)
[2019-09-27] MEDS: Senokot S 8.6-50 MG TAB PO SCH ×2 (10:15→20:46)
[2019-09-27] MEDS: Digoxin 0.5 MG/2 ML AMP SLOW IVP SCH (10:20)
[2019-09-27] MEDS ORDERED: Metolazone 5 MG TAB PO SCH (11:00)
[2019-09-27] MEDS ORDERED: Furosemide 100 MG/10 ML VIAL SLOW IVP SCH (11:00)
--- NOTE | 2019-09-27 14:41 | PRG ---
DATE OF SERVICE: 09/27/2019 SUBJECTIVE: Mr. Dye is a 69-year-old man who is post injury day #6 status post ground-level fall with closed left femoral neck fracture. He is postoperative day #4, status post left hip hemiarthroplasty. Postoperative period has been complicated by acute CHF exacerbation and [id number] kidney failure. The patient is on dopamine at 5 mcg/kg/minute as well as dobutamine at 5 mcg/kg/minute. He is somnolent, but awakens to voice. He is tolerating tube feeds at goal, having bowel movements. Urinary output is approximately 0.5 mL/kg/hour. OBJECTIVE: VITAL SIGNS: Blood pressure currently 112/52, pulse is 88, respiratory rate is 28, maximum temperature in the last 24 hours is 99.5 degrees Fahrenheit, and oxygen saturation is 96% on room air. HEENT: He has no jugular venous distention noted. LUNGS: Bibasilar rhonchi. Breathing regular and nonlabored. ABDOMEN: Soft. Moderately distended, but nontender to palpation. Bowel sounds are present in all 4 quadrants. NEUROLOGIC: No focal deficits present. LABORATORY FINDINGS: Today include a CBC with 14,000 white blood cells down from 15,500 yesterday, hemoglobin and hematocrit are 7.4 and 23.6 respectively, and platelet count is 128,000. Differential counts as follows; 92% segmented neutrophils, 3 bands, 1 lymphocyte, and 4 monocytes. Metabolic profile: Sodium 142, potassium 3.2, chloride is 108, bicarb is 23, BUN is 111, creatinine is 3.05, and glucose is 217. Magnesium is 2.2. Phosphorus is 3.9. BNP is high at 1787.8, this is increased from 1328.8 yesterday. IMPRESSIONS: 1. Worsening acute congestive heart failure exacerbation. 2. Worsening [id number] renal failure. 3. Postinjury day #6 status post ground-level fall with left hip fracture. PLAN: 1. Increase diuretics and continue inotropic support. 2. 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 3. I informed them that we will be more aggressive in trying to diurese the patient, limiting the total fluid intake due to this patient's current worsening congestive heart failure. 4. Should the patient fail to rally, consideration will be given in next few days to comfort care measures. 5. However, if were able to successfully wean the patient off inotropic support, the patient may be transferred to inpatient custodial facility at the discretion of the family. 6. The patient's daughter will be discussing the risks with the family members in order to decide on future care going forward. Job ID: [id number]
[2019-09-27] MEDS: Donepezil HCl 5 MG TAB PO SCH (20:45)
[2019-09-27] MEDS: Atorvastatin Calcium 40 MG TAB PO SCH (20:45)
[2019-09-28] MEDS: Insulin Regular 300 UNITS/3 ML VIAL SC PRN ×3 (01:00→17:47)
[2019-09-28] MEDS: Albuterol Sulfate 2.5 mg/3 ml Neb NEB SCH ×4 (01:28→19:15)
[2019-09-28] MEDS: Acetaminophen 500 MG TAB PO SCH ×4 (03:49→20:54)
--- NOTE | 2019-09-28 03:56 | PRG ---
DATE OF SERVICE: 09/27/2019 SUBJECTIVE: The patient was seen this evening during rounds. He was lying in bed comfortably with no signs of acute distress. Nursing has started to wean off the dopamine and the patient has been tolerating. OBJECTIVE: VITAL SIGNS: Temperature 98.4, pulse is 88, respirations 23, oxygen saturation 100% on 2 L nasal cannula, blood pressure 108/47. ASSESSMENT: 1. Status post ground level fall, on Eliquis. 2. Left femoral neck fracture, status post repair. 3. Acute congestive heart failure, stable. 4. History of coronary artery disease, congestive heart failure, dementia, automatic implantable cardioverter defibrillator, diabetes, chronic kidney disease, cardiac stent, gastroesophageal reflux disease, atrial fibrillation, ascites, and coronary artery bypass grafting. PLAN: Continue tube feeds at goal. Continue total fluid in 100 an hour. Continue to work on diuresis. Continue to come off dopamine as previously ordered by Dr. Jon. Job ID: [id number]
[2019-09-28 04:27] LABS: Anion Gap 14 mmol/L (10-20); BUN (Urea Nitrogen) 125 mg/dL (8.4-25.7); Calc. Creatinine Clearance 26 mL/min (70-130); Calcium 8.6 mg/dL (7.8-10.44); Carbon Dioxide 25 mmol/L (23-31); Chloride 108 mmol/L (98-107); Estimated GFR-MDRD 24; Glucose 209 mg/dL (80-115); Magnesium 2.4 mg/dL (1.6-2.6); Phosphorus 3.9 mg/dL (2.3-4.7); Potassium 3.2 mmol/L (3.5-5.1); Sodium 144 mmol/L (136-145)
[2019-09-28 04:29] LABS: Band 1 % (5-11); Eosinophils 1 % (0-10); Hemoglobin 7.6 g/dL (14.0-18.0); Lymphocytes 7 % (21-51); MDiff Complete? YES; Mean Corpuscular HGB CONC 32.3 g/dL (32.0-36.0); Mean Corpuscular Hemoglobin 30.7 pg (27.0-31.0); Mean Platelet Volume 12.2 fL (7.4-10.4); Monocytes 15 % (0-10); Neutrophil 76 % (42-75); Platelet Count 144 thou/uL (130-400); Red Blood Cell (RBC) Count 2.48 mill/uL (4.70-6.10); Schistocytes SLIGHT = 2-5 cells (100X) (0-1/hpf); Tear Drops SLIGHT = 2-5 cells (100X) (0-1/hpf); White Blood Cell (WBC) Count 12.3 thou/uL (4.8-10.8)
[2019-09-28] MEDS ORDERED: Potassium Phosphate 30 MMOL in Sodium Chloride 0.9% 250 ML 250 ML IVPB SCH (08:30)
[2019-09-28] MEDS: Ferrous Sulfate 325 MG TAB PO SCH ×2 (09:40→16:59)
[2019-09-28] MEDS: Amiodarone 200 MG TAB PO SCH (09:42)
[2019-09-28] MEDS: Apixaban 5 MG TAB PO SCH ×2 (09:42→20:54)
[2019-09-28] MEDS: Senokot S 8.6-50 MG TAB PO SCH ×2 (09:42→20:54)
[2019-09-28] MEDS: Ascorbic Acid 500 mg Chewable Tablet PO SCH ×2 (09:43→20:54)
[2019-09-28] MEDS: Bumetanide 1 MG TAB PO SCH (09:45)
[2019-09-28] MEDS: Digoxin 0.5 MG/2 ML AMP SLOW IVP SCH (09:47)
[2019-09-28] MEDS: Carvedilol 3.125 MG TAB PO SCH ×3 (09:48→20:54)
[2019-09-28] MEDS: Folic Acid 1 MG TAB PO SCH (09:48)
[2019-09-28] MEDS: Famotidine 20 MG TAB PO SCH (09:48)
[2019-09-28] MEDS: Multivitamin W/ Minerals 1 TAB PO SCH (09:49)
[2019-09-28] MEDS: Bisacodyl 10 MG SUPP PR SCH (09:51)
[2019-09-28] MEDS: Polyethylene Glycol 3350 17 GM Packet PO SCH (09:51)
[2019-09-28] MEDS ORDERED: DOBUTamine 500 mg/250 ml 250 ML IVPB SCH (20:15)
[2019-09-28] MEDS: Atorvastatin Calcium 40 MG TAB PO SCH (20:53)
[2019-09-29] MEDS: Donepezil HCl 5 MG TAB PO SCH ×2 (00:10→21:57)
[2019-09-29] MEDS: Albuterol Sulfate 2.5 mg/3 ml Neb NEB SCH ×5 (01:30→23:53)
[2019-09-29] MEDS: Acetaminophen 500 MG TAB PO SCH ×4 (03:03→21:57)
--- NOTE | 2019-09-29 04:03 | PRG ---
DATE OF SERVICE: 09/28/2019 SUBJECTIVE: The patient was seen this evening during rounds. He was lying in bed with no signs of acute distress. Nursing reported no acute events. OBJECTIVE: VITAL SIGNS: Temperature 98.7, pulse 92, respirations 28, oxygen saturation 99% on room air, blood pressure 97/84. ASSESSMENT: 1. Status post ground level fall on Eliquis. 2. Left femoral neck fracture, status post repair. 3. Acute congestive heart failure, stable. 4. History of coronary artery disease, congestive heart failure, dementia, automatic implantable cardioverter defibrillator, diabetes, chronic kidney disease, cardiac stents, gastroesophageal reflux disease, atrial fibrillation, ascites, and coronary artery bypass grafting. 5. Failure to thrive. PLAN: Continue current diet and pain regimen. Discontinue dopamine. Continue dobutamine. The patient's family agreed to hospice. We have consulted them and we are waiting for them to evaluate and accept the patient. In the meantime we will not make further adjustments and start focusing on comfort measures. No labs in the morning. Job ID: [id number]
[2019-09-29 09:07] LABS: #Eosinphils 0.1 thou/uL (0.0-0.7); #Lymphocytes 0.8 thou/uL (1.20-3.40); #Monocytes 1.5 thou/uL (0.11-0.59); #Neutrophils 12.3 thou/uL (1.40-6.50); %Basophils 0.1 % (0.0-1.0); %Eosinophils 0.5 % (0.0-10.0); %Lymphocytes 5.1 % (21.0-51.0); %Monocytes 10.5 % (0.0-10.0); %Neutrophils 83.8 % (42.0-75.0); Mean Corpuscular HGB CONC 31.7 g/dL (32.0-36.0); Mean Corpuscular Hemoglobin 29.5 pg (27.0-31.0); Mean Platelet Volume 12.6 fL (7.4-10.4); Platelet Count 171 thou/uL (130-400); RBC Distribution Width 20.5 % (11.5-14.5); Red Blood Cell (RBC) Count 2.36 mill/uL (4.70-6.10); White Blood Cell (WBC) Count 14.7 thou/uL (4.8-10.8)
[2019-09-29] MEDS: Ferrous Sulfate 325 MG TAB PO SCH ×2 (09:29→17:54)
[2019-09-29] MEDS: Bisacodyl 10 MG SUPP PR SCH (09:30)
[2019-09-29] MEDS: Amiodarone 200 MG TAB PO SCH (09:30)
[2019-09-29] MEDS: Ascorbic Acid 500 mg Chewable Tablet PO SCH ×2 (09:30→21:57)
[2019-09-29] MEDS: Bumetanide 1 MG TAB PO SCH (09:30)
[2019-09-29] MEDS: Apixaban 5 MG TAB PO SCH ×2 (09:30→21:58)
[2019-09-29] MEDS: Carvedilol 3.125 MG TAB PO SCH ×2 (09:31→22:02)
[2019-09-29] MEDS: Famotidine 20 MG TAB PO SCH (09:31)
[2019-09-29] MEDS: Folic Acid 1 MG TAB PO SCH (09:32)
[2019-09-29] MEDS: Multivitamin W/ Minerals 1 TAB PO SCH (09:32)
[2019-09-29] MEDS: Polyethylene Glycol 3350 17 GM Packet PO SCH (09:32)
[2019-09-29] MEDS: Senokot S 8.6-50 MG TAB PO SCH ×2 (09:32→21:59)
[2019-09-29 09:35] LABS: BUN (Urea Nitrogen) 127 mg/dL (8.4-25.7)
[2019-09-29 09:40] LABS: Anion Gap 18 mmol/L (10-20); Calc. Creatinine Clearance 27 mL/min (70-130); Calcium 8.6 mg/dL (7.8-10.44); Carbon Dioxide 24 mmol/L (23-31); Chloride 107 mmol/L (98-107); Estimated GFR-MDRD 23; Glucose 215 mg/dL (80-115); Magnesium 2.6 mg/dL (1.6-2.6); Phosphorus 4.9 mg/dL (2.3-4.7); Potassium 2.9 mmol/L (3.5-5.1); Sodium 146 mmol/L (136-145)
[2019-09-29] MEDS ORDERED: Potassium Chloride 40 MEQ in Premix Bag 1 BAG IVPB SCH (10:00)
[2019-09-29] MEDS: Digoxin 0.5 MG/2 ML AMP SLOW IVP SCH (11:38)
--- NOTE | 2019-09-29 12:42 | PRG ---
DATE OF SERVICE: 09/29/2019 SUBJECTIVE: Mr. Dye is a 69-year-old man, who is postoperative day #8, status post ground level fall and postoperative day #6, status post left hip hemiarthroplasty. We were able to successfully wean the dopamine off over the last 24 hours. He is on dobutamine at 5 mcg/kg per minute. Blood pressure had remained stable within last 24 hours. Urinary output is adequate for the patient's age and weight. The patient inadvertently pulled out the [place] yesterday and is more awake this morning; however, he failed swallow studies 2 days ago. He is able to manage his oral secretions. His airway appears well protected. OBJECTIVE: VITAL SIGNS: This morning include blood pressure 114/48, pulse is 92, respiratory rate is 32, maximum temperature in last 24 hours is 99.7 degrees Fahrenheit. This morning, the patient is afebrile with a temperature of 98.0 degrees Fahrenheit. GENERAL: He is on no antibiotics. HEENT: Reveals no jugular venous distention noted. HEART: Reveals irregular rate and irregular rhythm. LUNGS: Reveals scattered rhonchi. Breathing regular and nonlabored. ABDOMEN: Soft, nontender, nondistended. The patient is having bowel movements. NEUROLOGIC: Reveals no focal deficits present. LABORATORY FINDINGS: Today include a CBC with 14,700 white blood cells hemoglobin and hematocrit 7.0 and 21.9 respectively, platelet count is 171,000. Metabolic profile; sodium 146, potassium 2.9, chloride is 107, bicarb is 24, BUN is 127, creatinine is 3.28, and this is in contrast to BUN and creatinine of 125 and 3.14 yesterday. Glucose today is 215, magnesium 2.6, and phosphorus 4.9. IMPRESSIONS: 1. Postop day #6, status post left hip hemiarthroplasty. 2. Acute congestive heart failure exacerbation, improving. 3. Acute on chronic renal failure, stable. 4. Acute hypokalemia. 5. Acute blood loss anemia. 6. Acute hypernatremia. PLAN: 1. Correct abnormal electrolytes. 2. We will ask speech and language pathologist to re-evaluate the patient for swallow function. 3. The patient will be transfused with 1 unit of packed red blood cells. 4. Anticipate discharge to home over the next 24 to 48 hours once able to liberate from inotropic support and the patient remaining hemodynamically stable. Job ID: [id number]
[2019-09-29] MEDS: Atorvastatin Calcium 40 MG TAB PO SCH (21:57)
--- NOTE | 2019-09-30 03:50 | PRG ---
DATE OF SERVICE: 09/29/2019 SUBJECTIVE: The patient was seen this evening during rounds. He was lying in bed, resting comfortably with no signs of acute distress. Nursing reported no acute events. OBJECTIVE: VITAL SIGNS: Temperature 97.7, pulse 84, respirations 38, oxygen saturation 99%, and blood pressure 116/56. ASSESSMENT: 1. Status post ground level fall, on Eliquis. 2. Right femoral neck fracture, status post repair. 3. Acute congestive heart failure, stable. 4. History of coronary artery disease, congestive heart failure, dementia, automated implantable cardioverter defibrillator, diabetes, chronic kidney disease, cardiac stents, gastroesophageal reflux disease, atrial fibrillation, ascites, and coronary artery bypass graft. PLAN: Continue to wean dobutamine. The patient has been accepted into hospice, receives comfort measures. He will likely be discharged in the morning. Job ID: [id number]
[2019-09-30 05:10] LABS: Anion Gap 15 mmol/L (10-20); Calc. Creatinine Clearance 28 mL/min (70-130); Calcium 8.9 mg/dL (7.8-10.44); Carbon Dioxide 26 mmol/L (23-31); Chloride 108 mmol/L (98-107); Estimated GFR-MDRD 24; Glucose 204 mg/dL (80-115); Magnesium 2.6 mg/dL (1.6-2.6); Phosphorus 4.6 mg/dL (2.3-4.7); Sodium 146 mmol/L (136-145)
[2019-09-30 05:15] LABS: Potassium 2.9 mmol/L (3.5-5.1)
[2019-09-30 05:22] LABS: BUN (Urea Nitrogen) 125 mg/dL (8.4-25.7)
[2019-09-30 05:29] VITALS: BP 121/60
[2019-09-30 05:31] LABS: #Eosinphils 0.1 thou/uL (0.0-0.7); #Lymphocytes 0.8 thou/uL (1.20-3.40); #Monocytes 1.5 thou/uL (0.11-0.59); #Neutrophils 13.7 thou/uL (1.40-6.50); %Basophils 0.2 % (0.0-1.0); %Eosinophils 0.4 % (0.0-10.0); %Monocytes 9.5 % (0.0-10.0); %Neutrophils 84.9 % (42.0-75.0); Hemoglobin 8.1 g/dL (14.0-18.0); MDiff Complete? YES; Mean Corpuscular HGB CONC 32.1 g/dL (32.0-36.0); Mean Corpuscular Volume 93.5 fL (78.0-98.0); Mean Platelet Volume 9.3 fL (7.4-10.4); Platelet Count 200 thou/uL (130-400); RBC Distribution Width 19.3 % (11.5-14.5); Red Blood Cell (RBC) Count 2.71 mill/uL (4.70-6.10); Schistocytes SLIGHT = 2-5 cells (100X) (0-1/hpf); Target Cells SLIGHT = 2-5 cells (100X) (0-1/hpf); White Blood Cell (WBC) Count 16.1 thou/uL (4.8-10.8)
[2019-09-30] MEDS: Acetaminophen 500 MG TAB PO SCH ×2 (05:38→08:42)
[2019-09-30] MEDS ORDERED: Potassium Chloride 40 MEQ in Premix Bag 1 BAG IVPB SCH (05:45)
[2019-09-30] MEDS ORDERED: Potassium Chloride 40 MEQ in Sodium Chloride 0.9% 250 ML 250 ML IVPB SCH (05:45)
[2019-09-30] MEDS: Albuterol Sulfate 2.5 mg/3 ml Neb NEB SCH (07:35)
[2019-09-30] MEDS: Ascorbic Acid 500 mg Chewable Tablet PO SCH (08:42)
[2019-09-30] MEDS: Ferrous Sulfate 325 MG TAB PO SCH (08:42)
[2019-09-30] MEDS: Apixaban 5 MG TAB PO SCH (08:42)
[2019-09-30] MEDS: Bumetanide 1 MG TAB PO SCH (08:42)
[2019-09-30] MEDS: Folic Acid 1 MG TAB PO SCH (08:43)
[2019-09-30] MEDS: Famotidine 20 MG TAB PO SCH (08:43)
[2019-09-30] MEDS: Multivitamin W/ Minerals 1 TAB PO SCH (08:43)
[2019-09-30] MEDS: Carvedilol 3.125 MG TAB PO SCH (08:43)
[2019-09-30] MEDS: Amiodarone 200 MG TAB PO SCH (08:44)
[2019-09-30 09:23] LABS: Bilirubin Negative (Negative); Blood, Urine Negative (Negative); Clarity Clear (Clear); Glucose, Urine (Dipstick) Normal (Negative); Leukocyte Negative Leu/uL (Negative); Nitrite Negative (Negative); Protein, Urine (Dipstick) 10 mg/dL (Neg-Trace); RBC/HPF 0-3 HPF (0-3); Squamous Epithelial None Seen HPF (0-3); Urobilinogen Normal mg/dL (Less than 2)
[2019-09-30 09:24] LABS: Bacteria/HPF 1+ HPF (None Seen)
[2019-09-30 09:25] LABS: Urine Culture Reflex Yes Yes
[2019-09-30] MEDS: Senokot S 8.6-50 MG TAB PO SCH (10:10)
[2019-09-30] MEDS: Polyethylene Glycol 3350 17 GM Packet PO SCH (10:10)
[2019-09-30 11:50] VITALS: TEMP 97.6
[2019-09-30] MEDS ORDERED: Tamsulosin HCl 0.4 MG CAP PO SCH (17:00)
== END 2019-09-30 11:35 | disposition hospice, home (50) | DRG 469 ==
LOC: ERS 20:51 → SURG B 22:55 → IMCU/EMU 09-24 10:56
PROVIDERS: ADMIT Specialist; ATTEND Specialist
PROC: 0SRS03A Replacement of Left Hip Joint, Femoral Surface with Ceramic Synthetic Substitute, Uncemented, Open Approach (ICD-10-PCS; principal; 2019-09-23)
PROC: 05H533Z Insertion of Infusion Device into Right Subclavian Vein, Percutaneous Approach (ICD-10-PCS; 2019-09-24)
PROC: 3E043XZ Introduction of Vasopressor into Central Vein, Percutaneous Approach (ICD-10-PCS; 2019-09-24)
PROC: 30233N1 Transfusion of Nonautologous Red Blood Cells into Peripheral Vein, Percutaneous Approach (ICD-10-PCS; 2019-09-25)
DX: S72.002A Fracture of unspecified part of neck of left femur, initial encounter for closed fracture (principal); N18.6 End stage renal disease; I50.43 Acute on chronic combined systolic (congestive) and diastolic (congestive) heart failure; D68.32 Hemorrhagic disorder due to extrinsic circulating anticoagulants; D62 Acute posthemorrhagic anemia; E87.0 Hyperosmolality and hypernatremia; R18.8 Other ascites; I13.2 Hypertensive heart and chronic kidney disease with heart failure and with stage 5 chronic kidney disease, or end stage renal disease; Z66 Do not resuscitate; Z51.5 Encounter for palliative care; W01.0XXA Fall on same level from slipping, tripping and stumbling without subsequent striking against object, initial encounter; I25.10 Atherosclerotic heart disease of native coronary artery without angina pectoris; F32.9 Major depressive disorder, single episode, unspecified; K21.9 Gastro-esophageal reflux disease without esophagitis; F03.90 Unspecified dementia, unspecified severity, without behavioral disturbance, psychotic disturbance, mood disturbance, and anxiety; M10.9 Gout, unspecified; E78.5 Hyperlipidemia, unspecified; J44.9 Chronic obstructive pulmonary disease, unspecified; I25.5 Ischemic cardiomyopathy; E11.22 Type 2 diabetes mellitus with diabetic chronic kidney disease; I48.91 Unspecified atrial fibrillation; F10.20 Alcohol dependence, uncomplicated; R62.7 Adult failure to thrive; T45.515A Adverse effect of anticoagulants, initial encounter; I95.9 Hypotension, unspecified; E87.6 Hypokalemia; Z88.0 Allergy status to penicillin; Z95.1 Presence of aortocoronary bypass graft; Z90.49 Acquired absence of other specified parts of digestive tract; Z94.9 Transplanted organ and tissue status, unspecified; Z95.810 Presence of automatic (implantable) cardiac defibrillator; Z68.33 Body mass index [BMI] 33.0-33.9, adult; Z95.5 Presence of coronary angioplasty implant and graft; Z79.899 Other long term (current) drug therapy; Z79.01 Long term (current) use of anticoagulants; Z79.82 Long term (current) use of aspirin; Z79.4 Long term (current) use of insulin; Y93.41 Activity, dancing; R25.1 Tremor, unspecified; R00.0 Tachycardia, unspecified; R50.9 Fever, unspecified
CPT/HCPCS: 36415; 36416; 36430; 70450; 71045; 72170; 74019; 80048; 80053; 80162; 81001; 82533; 82805; 83605; 83735; 83880; 84100; 85007; 85025; 85027; 85610; 85730; 86850; 86900; 86901; 87040; 87086; 93005; 93010; 93306; 94640; G0390; J0690; J1100; J1160; J1250; J1265; J1720; J1815; J1940; J1956; J2060; J2270; J2795; J3010; J3411; J3430; J3480; J3490; J7050; J7070; J7611; J7620; P9016; P9045; P9047; S0028